=== PATIENT | female | born 1970 | race Caucasian/White ===

== ENCOUNTER → 2019-03-02 | Outpatient (CLI) | payer MEDICARE, MEDICAID ==
[~2019-03-02] MED LIST: ALPR0.5T72 PO; ANAS1TAB7 PO; CEPH500C PO; DIPH50CA44 PO; DOXY100C2 PO; GFN600TCR PO; HYDR1TAB PO; LANS30CA PO; LEVO500T69 PO; NF-ESOM40C PO; TRZ100T PO; VANCADD1 IV
[2019-03-02 16:24] LABS: ALANINE AMINOTRANSFERASE 25 U/L (0-55); ALBUMIN 4.1 GM/DL (3.2-4.5); ALKALINE PHOSPHATASE 114 U/L (40-136); BILIRUBIN,TOTAL 0.4 MG/DL (0.1-1.0); BUN/CREATININE RATIO 18; CALCIUM 9.3 MG/DL (8.5-10.1); CARBON DIOXIDE 24 MMOL/L (21-32); CHLORIDE 103 MMOL/L (98-107); CREATININE SERUM 0.78 MG/DL (0.60-1.30); GFR ESTIMATED > 60; GLUCOSE 99 MG/DL (70-105); POTASSIUM 3.6 MMOL/L (3.6-5.0); SODIUM 142 MMOL/L (135-145)
== END ==
LOC: LAB FS 02-26 12:57
PROVIDERS: ATTEND Surgery
DX: R51 Headache (principal); R53.1 Weakness
CPT/HCPCS: 36415; 80053

== ENCOUNTER 2019-08-07 21:01 | Emergency (ER) | payer MEDICARE, MEDICAID ==
[~2019-08-07] VITALS: Ht 182.8 cm; Wt 135.4 kg
[2019-08-07] MEDS ORDERED: LIDOCAINE 2% VISCOUS 15 ML UDC PO STA (21:47)
--- NOTE | 2019-08-07 21:48 | ED General ---
General Chief Complaint: Lower Extremity Stated Complaint: LEG AND MOUTH PAIN Nursing Triage Note: PT. REPORTED SHE STARTED HAVING MOUTH PAIN THAT FEELS LIKE HER MOUTH IS ON FIRE IF SHE EVEN TAKES A SIP OF WATER. SHE STATED SHE HAD AN ULCER ON THE RIGHT SIDE WHERE HER PARTIAL PLATE RUBS. SHE REPORTED THE MOUTH PAIN STARTED 4 DAYS AGO. PT. ALSO C/O LOWER EXT. PAIN STATING HER LEGS HAVE HURT FOR 2 MONTHS. PT. WANTING TO BE CHECKED TO MAKE SURE SHE DOES NOT HAVE BONE CA. PT. REPORTED SHE IS UNABLE TO GET IN TO SEE THE DOCTOR UNTIL THE MIDDLE OF AUG. AND SHE ALSO C/O BEING DIZZY BUT STATED SHE IS ALWAYS DIZZY. Nursing Sepsis Screen: No Definite Risk Source of Information: Patient History of Present Illness Date Seen by Provider: Aug 07, 2019 Time Seen by Provider: 21:16 Initial Comments 49-year-old female presenting with complaints of burning pain in her mouth when she tries to eat or drink anything for the last 4 days. She also has had 2 months or more of pain in her lower legs. She feels like it's bone pain and is worse in the shins of her legs. Especially the pain of the left leg is worse. She has seen Dr. Luz about the leg pain and was referred to the spine doctor who referred her onto a different specialist in [facility]. She is waiting to hear about that referral. She states that she called to try and get in with Dr. Luz about worsening pain in her legs and the pain in her mouth that they stated they could not get her in until 23 August. Today her symptoms got worse and she came to the ER to see if there was anything that could be done. She is worried she may have bone cancer in her legs. She has not eaten well for the last few days because of the severe pain in her mouth. She does have a history of having a gastric bypass. She also has dentures in place because she has a history of breast cancer and lost teeth when she went through chemotherapy and then had the rest of them pulled. the dentures are not fitting as well as she has lost weight. She has developed a small sore to the roof of her mouth from where the dentures were rubbing against her mouth. Allergies and Home Medications Allergies Coded Allergies: Adhesive (Verified Allergy, Unknown, 11/19/11) Latex (Verified Allergy, Unknown, 11/19/11) Penicillins (Unverified Allergy, SOB, 11/04/11) Home Medications Alprazolam 0.5 Mg Tab.rapdis, 1 EACH PO TID PRN, (Reported) Anastrozole 1 Mg Tablet, 1 MG PO DAILY, (Reported) Cephalexin Monohydrate 500 Mg Capsule, 1 EACH PO QID, (Reported) Diphenhydramine Hcl 50 Mg Capsule, 50 MG PO HS, (Reported) Esomeprazole Mag Trihydrate 40 Mg Capsule.dr, 1 CAP PO BID, (Reported) Lansoprazole 30 Mg Capsule.dr, 30 MG PO DAILY, (Reported) Lidocaine HCl 15 Ml Solution, 5 ML MM Q4H PRN for mouth pain Prescribed by: RAUL PEREIRA on 08/07/192305 Trazodone Hcl 100 Mg Tab, 100 MG PO HS, (Reported) Patient Home Medication List Home Medication List Reviewed: Yes Review of Systems Review of Systems Constitutional: No chills, No fever EENTM: see HPI Respiratory: no symptoms reported Cardiovascular: no symptoms reported Gastrointestinal: no symptoms reported Genitourinary: no symptoms reported Musculoskeletal: see HPI Skin: no symptoms reported Past Tkfuxmc-Hmgxki-Zztjxt Hx Past Med/Social Hx: Reviewed Nursing Past Med/Soc Hx Patient Social History Recent Foreign Travel: No Contact w/Someone Who Travel: No Recent Infectious Disease Expo: No Recent Hopitalizations: No (03/2012) Physical Abuse: No Sexual Abuse: No Mistreated: No Fear: No Seasonal Allergies Seasonal Allergies: No Past Medical History Surgeries: Yes (Groshong 10/29/11, mastectomy (L) 2010) Respiratory: No Cardiac: No Neurological: No Reproductive Disorders: Yes Gastrointestinal: Yes (Postop N/V) Musculoskeletal: Yes (OSTEOMYLITIS RIGHT FOOT) Endocrine: No Psychosocial: No Blood Disorders: Yes (BLEED ALOT WITH BREAST SURG) Physical Exam Vital Signs Vital Signs - First Documented 08/07/19 21:05 Temp 36.0 Pulse 86 Resp 16 B/P (MAP) 131/94 (106) Pulse Ox 98 O2 Delivery Room Air Capillary Refill : Less Than 3 Seconds Height, Weight, BMI Height: '" Weight: lbs. oz. kg; 40.00 BMI Method: General Appearance: WD/WN, Anxious Eyes: Bilateral Eye PERRL, Bilateral Eye EOMI HEENT: PERRL/EOMI, Other (edentulous and dentures in place. no erythema or sores/ulcers seen in mouth. no white plaques or exudate in mouth) Neck: Full Range of Motion, Normal Inspection, Non Tender, Supple Respiratory: Chest Non Tender, Lungs Clear, Normal Breath Sounds Cardiovascular: Regular Rate, Rhythm, Normal Peripheral Pulses Extremity: Normal Capillary Refill, Normal Inspection, Normal Range of Motion, Non Tender, No Pedal Edema Neurologic/Psychiatric: Alert, Oriented x3 Skin: Normal Color, Warm/Dry Progress/Results/Core Measures Suspected Sepsis Recent Fever Within 48 Hours: No Infection Criteria Present: None New/Unexplained Altered Menta: No Sepsis Screen: No Definite Risk SIRS Temperature: Pulse: 86 Respiratory Rate: 16 Blood Pressure 131 /94 Mean: 106 Results/Orders Lab Results Laboratory Tests Test 08/07/19 22:14 Range/Units My Orders Orders - RAUL PEREIRA MD Tibia Fibula 2 View Bilateral (08/07/19 21:45) Zinc Level (08/07/19 21:45) Vitamin B 12 (08/07/19 21:45) Folic Acid (08/07/19 21:45) Lidocaine 2% Viscous 15 Ml (Xylocaine Vi (08/07/19 21:47) Vital Signs/I&O 08/07/19 08/07/19 21:05 23:01 Temp 36.0 36.4 Pulse 86 84 Resp 16 20 B/P (MAP) 131/94 (106) 128/88 Pulse Ox 98 99 O2 Delivery Room Air Room Air Capillary Refill : Less Than 3 Seconds Blood Pressure Mean: 106 Progress Note #1: Progress Note Advised patient that with her history of gastric bypass she may be low on some vitamins might be causing her burning mouth symptoms. This may also be related to her dentures not fitting as well and causing irritation. For her leg pain I can do x-rays of the legs and see if there is any abnormality in terms bones. If these look okay she would need to continue with further workup with Dr. Self. Saab but not specifically saying she had bone cancer but if there is an obvious big bone cyst or abnormality and they could at least to help point the investigation in a better direction. Progress Note #2: Progress Note Labs sent for Zinc, B12 and folate levels. Patient was already advised that these would not be back tonight. She was encouraged to take zinc supplements in addition to her other vitamins she already is taking. On my review of the 2 view films of the left and right tib-fib x-rays I did not appreciate any acute fracture or dislocation. She had no obvious bone deformity to explain her pain. Counseled on results and follow-up and return precautions. For her mouth pain she states that she still has some mouthwash left over from when she did chemotherapy. She will try that to see if it helps with the pain. I also gave her prescription for some viscous lidocaine since it did at least numb the pain in her mouth. Departure Impression Primary Impression: Burning mouth syndrome Additional Impression: Bilateral leg pain Disposition: HOME, SELF-CARE Condition: Stable Departure-Patient Inst. Decision time for Depature: 22:59 Referrals: AASHISH LUZ MD (PCP/Family) Primary Care Physician Patient Instructions: Burning Mouth Syndrome, Muscle and Bone Pain (DC) Add. Discharge Instructions: Follow up with clinic. Try taking the Zinc supplement to see if that helps your symptoms. You may try using the mouthwash you have at home from when you did your chemotherapy to see if that helps your symptoms. You may also try the Lidocaine swish and spit medicine for numbing effect. All discharge instructions reviewed with patient and/or family. Voiced understanding. Scripts Lidocaine HCl (Lidocaine HCl Viscous) 15 Ml Solution 5 ML MM Q4H PRN for mouth pain for 3 Days, #120 ML 0 Refills Prov: RAUL PEREIRA MD 08/07/19 RAUL PEREIRA MD Aug 07, 2019 21:48
[2019-08-07 23:01] VITALS: BP 128/88
[2019-08-07] MEDS ORDERED: LIDO15SO2 MM (23:06)
--- NOTE | 2019-08-08 07:26 | Diagnostic Imaging Report ---
INDICATION: Right lower extremity pain. TIME OF EXAM: 9:28 PM Frontal and lateral views of the bilateral tibia and fibula were obtained. Alignment at the knee and ankles is normal bilaterally. Tibia and fibula appear intact bilaterally. No fractures are seen. Soft tissues are unremarkable. No definite osteolytic or blastic lesion is seen. IMPRESSION: No acute abnormality is detected. Dictated by: Dictated on workstation # [id number]
== END 2019-08-07 23:07 | disposition home or self-care (01) ==
LOC: EDUNIT# 21:01 → ER FS 21:04
DX: K14.6 Glossodynia (principal); M79.604 Pain in right leg; M79.605 Pain in left leg; Z88.8 Allergy status to other drugs, medicaments and biological substances; Z91.040 Latex allergy status; Z88.0 Allergy status to penicillin; Z85.3 Personal history of malignant neoplasm of breast
CPT/HCPCS: 36415; 82607; 82746; 84630

== ENCOUNTER → 2019-12-03 | Outpatient (CLI) | payer MEDICARE, MEDICAID ==
[~2019-12-03] MED LIST changes: +LIDO20SO23 MM
--- NOTE | 2019-12-03 12:55 | Diagnostic Imaging Report ---
EXAMINATION: CT abdomen/pelvis without contrast. TECHNIQUE: Unenhanced CT imaging of the abdomen and pelvis was performed. 2-D reformats are created and submitted for interpretation. Automatic exposure controls were utilized to optimize patient dose. INDICATION: Right flank pain. COMPARISON: CT abdomen and pelvis of 11/16/2011. FINDINGS: Evaluation of the abdominal viscera is mildly limited without contrast. Lower chest: The lung bases are clear. No pericardial or pleural effusion. Peritoneum: No free intraperitoneal air or fluid. Liver and biliary system: Unenhanced liver is normal. Cholecystectomy. No pathologic biliary duct dilatation. Spleen and Pancreas: Spleen is normal. Unenhanced pancreas is grossly normal. Adrenals: Normal. tract: There are three punctate nonobstructing 2 mm stones in the right kidney. No ureteral or urinary bladder stones. Urinary bladder is decompressed, limiting assessment. Hysterectomy. GI tract: Status post gastric sleeve. The stomach is nondilated. No bowel obstruction. No pericolonic inflammatory changes. Appendectomy. Vasculature and Lymph nodes: Normal caliber aorta. No abdominal or pelvic lymphadenopathy. Musculoskeletal: No concerning osseous lesion. IMPRESSION: 1. There are three punctate nonobstructing right renal stones. No ureteral stones or obstructive uropathy. Dictated by: Dictated on workstation # [id number]
== END ==
LOC: RAD FS 11:31
PROVIDERS: ATTEND Family Medicine
DX: N20.0 Calculus of kidney (principal)
CPT/HCPCS: 74176

== ENCOUNTER → 2019-12-24 | Outpatient (CLI) | payer MEDICARE, MEDICAID ==
--- NOTE | 2019-12-24 11:01 | Diagnostic Imaging Report ---
EXAMINATION: Supine Abdomen 1041h. INDICATION: Right-sided pain The CT abdomen/pelvis exam performed on 12/03/2019 noted 3 punctate nonobstructive calculi within the right kidney. Those findings are difficult to appreciate on this exam as the right kidney is obscured by bowel gas and fecal material. There is no evidence for nephrolithiasis on the left either. There are 2 or 3 small (3-4 mm) calcifications overlying the left transverse process of L5. In reviewing the CT exam these appear to lie along the anterior aspect of the psoas muscle. There also appear to be a few phleboliths low in the pelvis on the right. The bowel gas pattern is nonspecific. There is no evidence for bowel obstruction. Surgical clips are again seen in the region of the gastroesophageal junction and in the gallbladder fossa. There are also a few surgical clips in the pelvis on the right. IMPRESSION: The nonobstructive calculi within the right kidney seen previously are difficult to appreciate on this exam. There is no other evidence for nephrolithiasis or urolithiasis. Dictated by: Dictated on workstation # [id number]
== END ==
LOC: RAD 10:17
PROVIDERS: ATTEND Urology
DX: N20.0 Calculus of kidney (principal)
CPT/HCPCS: 74018

== ENCOUNTER 2020-02-14 12:22 | Emergency (ER) | payer MEDICARE, MEDICAID ==
[~2020-02-14] VITALS: Ht 185.5 cm; Wt 134.5 kg
--- NOTE | 2020-02-14 12:38 | ED Neurological Problem ---
General Chief Complaint: Neuro-Stroke Like Symptoms Stated Complaint: CHEST PAIN Source: patient Exam Limitations: no limitations History of Present Illness Date Seen by Provider: Feb 14, 2020 Time Seen by Provider: 12:22 Initial Comments The patient is an obese 49-year-old female brought in by EMS for evaluation of left-sided chest pain radiating to the left neck and left arm. She believes that her symptoms started at 11 AM today while she was getting out of her vehicle. At the same time she states that she lost vision in both eyes and then noticed some left sided weakness and numbness in her arm and leg. EMS gave the patient to return in 24 mg of aspirin in route for the chest pain. She states that her vision has been abnormal for the last 3 months and that she has been getting this worked up as an outpatient. Currently she states that her vision is blurry but she is able to see. 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 However, she states that normally she does not have any numbness or weakness in her arms or legs. Upon arrival she has no sensation in the left arm and is not able to move the arm against gravity. She does have some sort of cardiac history as she has seen a shorts sifter but she is unable to tell us what her history is an denies ever having had a heart attack. She is alert and oriented 4, anxious, but appears to be in no distress at this time. She reports a history of a bilateral mastectomy in the past and has a right-sided port. Timing/Duration: 1-3 hours Severity: moderate Associated Symptoms: numbness in legs/feet (left arm and left leg weakness and numbness), weakness Allergies and Home Medications Allergies Coded Allergies: Adhesive (Verified Allergy, Unknown, 11/19/11) Latex (Verified Allergy, Unknown, 11/19/11) Penicillins (Unverified Allergy, SOB, 11/04/11) Home Medications Alprazolam 0.5 Mg Tab.rapdis, 1 EACH PO TID PRN, (Reported) Anastrozole 1 Mg Tablet, 1 MG PO DAILY, (Reported) Cephalexin Monohydrate 500 Mg Capsule, 1 EACH PO QID, (Reported) Diphenhydramine Hcl 50 Mg Capsule, 50 MG PO HS, (Reported) Esomeprazole Mag Trihydrate 40 Mg Capsule.dr, 1 CAP PO BID, (Reported) Lansoprazole 30 Mg Capsule.dr, 30 MG PO DAILY, (Reported) Lidocaine HCl 15 Ml Solution, 5 ML MM Q4H PRN for mouth pain Prescribed by: RAUL PEREIRA on 08/07/192305 Trazodone Hcl 100 Mg Tab, 100 MG PO HS, (Reported) Patient Home Medication List Home Medication List Reviewed: Yes Review of Systems Review of Systems Constitutional: no symptoms reported Eyes: Blurred Vision, Vision Changes Ears, Nose, Mouth, Throat: no symptoms reported Respiratory: no symptoms reported Cardiovascular: chest pain Gastrointestinal: no symptoms reported Genitourinary: no symptoms reported Musculoskeletal: no symptoms reported Skin: no symptoms reported Psychiatric/Neurological: Numbness (and left leg and left arm), Weakness (left leg and left arm) Endocrine: No Symptoms Reported Hematologic/Lymphatic: No Symptoms Reported All Other Systems Reviewed Negative Unless Noted: Yes Past Yefsvfq-Qkvpwk-Aneezv Hx Past Med/Social Hx: Reviewed Nursing Past Med/Soc Hx Patient Social History Recent Hopitalizations: No (03/2012) Seasonal Allergies Seasonal Allergies: No Past Medical History Surgeries: Yes (Groshong 10/29/11, mastectomy (L) 2010) Respiratory: No Cardiac: No Neurological: No Reproductive Disorders: Yes Gastrointestinal: Yes (Postop N/V) Musculoskeletal: Yes (OSTEOMYLITIS RIGHT FOOT) Endocrine: No Psychosocial: No Blood Disorders: Yes (BLEED ALOT WITH BREAST SURG) Physical Exam Vital Signs Vital Signs - First Documented 02/14/20 12:41 Temp 36.8 Pulse 63 Resp 21 B/P (MAP) 144/73 (96) Pulse Ox 98 O2 Delivery Room Air Capillary Refill : Height, Weight, BMI Height: '" Weight: lbs. oz. kg; 40.00 BMI Method: General Appearance: WD/WN, no apparent distress, obese HEENT: PERRL/EOMI, normal ENT inspection, pharynx normal Neck: full range of motion, supple, normal inspection Respiratory: lungs clear, normal breath sounds, no respiratory distress, no accessory muscle use Cardiovascular: regular rate, rhythm, no edema, no JVD, no murmur Gastrointestinal: normal bowel sounds, non tender, soft, no pulsatile mass Extremities: other (left arm with edema, patient states she normally has some mild edema in the left arm but says this seems larger than normal) Neurologic/Psychiatric: alert, oriented x 3; No abnormal designated broker II-XII, No aphasia, No facial droop; motor weakness (almost no movement against gravity with the left arm, drift present in both the left arm and left leg), sensory deficit (no sensation to the left arm, decreased sensation to the left leg), other (appears anxious) Crainal Nerves: normal hearing, normal speech, PERRL Motor/Sensory: weak motor strength LUE, weak motor strength LLE Skin: normal color, warm/dry Stroke NIH Stroke Scale Assessment Select: Initial Level of Consciousness: 0=Alert (0), Level of Consciousness- Questions: 0=Answers both month/age (0), LOC Commands: 0=Performs both tasks (0), Gaze: Normal (0), Visual Lawson: 2=Complete hemianopia (2), Facial Movement (Facial Paresis): 0=Normal symmetrical mnt (0), Motor Function-Arms Right: 0=No drift (0), Motor Function-Arms Left: 3=No effort/gravity (3), Motor Function-Legs Right: 0=No drift (0), Motor Function-Legs Left: 1=Drift (1), Limb Ataxia: 0=Absent (0), Sensory: 2=Severe to total loss (2), Best Language: 0=No aphasia (0), Dysarthria: 0=Normal (0), Extinction & Inattention: 1=Visual,tactile,auditory (1), Total: 9 Progress/Results/Core Measures Results/Orders Lab Results Laboratory Tests Test 02/14/20 12:30 02/14/20 13:41 Range/Units White Blood Count 5.5 4.3-11.0 10^3/uL Red Blood Count 4.68 4.35-5.85 10^6/uL Hemoglobin 12.2 11.5-16.0 G/DL Hematocrit 39 35-52 % Mean Corpuscular Volume 83 80-99 FL Mean Corpuscular Hemoglobin 26 25-34 PG Mean Corpuscular Hemoglobin Concent 32 32-36 G/DL Red Cell Distribution Width 13.8 10.0-14.5 % Platelet Count 215 130-400 10^3/uL Mean Platelet Volume 9.7 7.4-10.4 FL Neutrophils (%) (Auto) 56 42-75 % Lymphocytes (%) (Auto) 33 12-44 % Monocytes (%) (Auto) 9 0-12 % Eosinophils (%) (Auto) 2 0-10 % Basophils (%) (Auto) 0 0-10 % Neutrophils # (Auto) 3.1 1.8-7.8 X 10^3 Lymphocytes # (Auto) 1.8 1.0-4.0 X 10^3 Monocytes # (Auto) 0.5 0.0-1.0 X 10^3 Eosinophils # (Auto) 0.1 0.0-0.3 10^3/uL Basophils # (Auto) 0.0 0.0-0.1 10^3/uL Prothrombin Time 14.8 H 12.2-14.7 SEC INR Comment 1.1 0.8-1.4 Activated Partial Thromboplast Time 26 24-35 SEC Sodium Level 142 135-145 MMOL/L Potassium Level 3.6 3.6-5.0 MMOL/L Chloride Level 110 H 98-107 MMOL/L Carbon Dioxide Level 21 21-32 MMOL/L Anion Gap 11 5-14 MMOL/L Blood Urea Nitrogen 18 7-18 MG/DL Creatinine 0.77 0.60-1.30 MG/DL Estimat Glomerular Filtration Rate > 60 BUN/Creatinine Ratio 23 Glucose Level 102 70-105 MG/DL Calcium Level 8.9 8.5-10.1 MG/DL Corrected Calcium 9.1 8.5-10.1 MG/DL Magnesium Level 1.7 1.6-2.4 MG/DL Total Bilirubin 0.3 0.1-1.0 MG/DL Aspartate Amino Transf (AST/SGOT) 21 5-34 U/L Alanine Aminotransferase (ALT/SGPT) 13 0-55 U/L Alkaline Phosphatase 109 40-136 U/L Total Creatine Kinase 111 29-168 U/L Creatine Kinase MB 1.1 <6.6 NG/ML Myoglobin 47.3 10.0-92.0 NG/ML Troponin I < 0.30 <0.30 NG/ML Pro-B-Type Natriuretic Peptide 52.6 <75.0 PG/ML Total Protein 6.9 6.4-8.2 GM/DL Albumin 3.8 3.2-4.5 GM/DL Glucometer 85 70-110 MG/DL My Orders Orders - FRANDY CAMACHO DO Cbc With Automated Diff (02/14/20 12:32) Magnesium (02/14/20 12:32) Chest 1 View Ap/Pa Only (02/14/20 12:32) Ekg Tracing (02/14/20 12:32) Comprehensive Metabolic Panel (02/14/20 12:32) Myoglobin Serum (02/14/20 12:32) Protime With Inr (02/14/20 12:32) Partial Thromboplastin Time (02/14/20 12:32) O2 (02/14/20 12:32) Monitor-Rhythm Ecg Trace Only (02/14/20 12:32) Ed Iv/Invasive Line Start (02/14/20 12:32) Creatine Kinase (02/14/20 12:32) Creatine Kinase Mb (02/14/20 12:32) Troponin I Fs (02/14/20 12:32) Probnp Fs (02/14/20 12:32) Ct Head Wo-R/O Stroke (02/14/20 12:32) Alteplase (Activase) (Activase Injection (02/14/20 13:42) Vital Signs Stroke Patient Q15M (02/14/20 13:45) Monitor-Rhythm Ecg Trace Only (02/14/20 13:45) Dysphagia Screening Tool (02/14/20 13:45) Alteplase (Activase) (Activase Injection (02/14/20 13:45) Post Thrombolytic Adminstratio (02/14/20 13:45) Ondansetron Injection (Zofran Injectio (02/14/20 14:30) Acetaminophen Tablet (Tylenol Tablet) (02/14/20 14:30) Fentanyl Injection (Sublimaze Injection (02/14/20 15:00) Fentanyl Injection (Sublimaze Injection (02/14/20 15:01) Medications Given in ED Current Medications Medications Dose Ordered Sig/Megan Route Start Time Stop Time Status Last Admin Dose Admin Alteplase, Recombinant (0.9mg/ kg-max 90mg) with ... 1345 ONCE IV 02/14/20 13:45 02/14/20 13:47 DC 02/14/20 14:19 90 MG Fentanyl Citrate 50 mcg ONCE ONCE IVP 02/14/20 15:00 02/14/20 15:02 DC 02/14/20 15:06 50 MCG Ondansetron HCl 4 mg ONCE ONCE IVP 02/14/20 14:30 02/14/20 14:31 DC 02/14/20 14:36 4 MG Vital Signs/I&O 02/14/20 12:41 Temp 36.8 Pulse 63 Resp 21 B/P (MAP) 144/73 (96) Pulse Ox 98 O2 Delivery Room Air Progress Progress Note : Progress Note @1220 - informed patient that her symptoms are concerning for stroke and she states that her preferred facility would be [facility] in [place]. @1320 - there is a problem with the chemistry machine so we cannot get the CMP to result. @1330 - Case discussed with the transfer team at [facility]. Dr. Crowder accepts the ER to ER transfer. The case was thoroughly discussed with Dr. Yeh from neurology who cannot find a contraindication to TPA. He states to discuss the wrist and benefits with the patient and if she is agreeable to give the TPA. I then discussed the 5-7% bleeding risk with the patient and the risks and benefits of giving TPA given her symptoms. She states that she has received TPA in the past for previous stroke and that she had occasions. I explained to her that she could have palpitations even though she tolerated the medicine in the past. She expresses verbal understanding and agreement with the plan. She is cu rrently having no vision in either eye and is anxious but does understand our discussion. I asked the nurse to get the helicopter on standby as we will try to fly the patient to the [facility] ER. Comment EKG@1230 - normal sinus rhythm, rate of 64, right bundle-branch block is present, left axis deviation is present, no acute ischemic findings noted, no S BI, reviewed and interpreted by myself Diagnostic Imaging Diagonstic Imaging: CT Comments [facility], [facility]. [place], [place] NAME: CHRISTOPHER ROMAN MED REC#: [id number] PT STATUS: REG ER : 1970 PHYSICIAN: FRANDY CAMACHO DO ADMIT DATE: 02/14/20/ER FS Draft Date of Exam:02/14/20 CT HEAD WO-R/O STROKE PROCEDURE: CT head wo r/o stroke. TECHNIQUE: Multiple contiguous axial images were obtained through the brain without the use of intravenous contrast. Auto Exposure Controls were utilized during the CT exam to meet ALARA standards for radiation dose reduction. INDICATION: Left-sided weakness. COMPARISON: Comparison is made with prior head CT from 11/10/2011. FINDINGS: The ventricles and sulci are within normal limits. No sulcal effacement or midline shift is detected. No acute intra-axial or extra-axial hemorrhage is detected. Cisterns are patent. Visualized paranasal sinuses are clear. IMPRESSION: No acute intracranial process is detected. Dictated on workstation # [id number] Dict: 02/14/20 1256 Trans: 02/14/20 1302 [facility] [id number] Interpreted by: KYLAH ROLDAN MD Electronically signed by: Critical Care Note Critical Care Start Time: 12:30 Stop Time: 13:30 Total Time (minutes) 60 Progress Multiple examinations of the patient, response to treatment, interpretation of lab and imaging results, discussion with multiple consultants, arranging transfer Departure Impression Primary Impression: Left-sided weakness Additional Impressions: Acute loss of vision Left arm numbness Chest pain Disposition: XF T-TRM HOSP Condition: Critical Transfer Transfer Reason: Exceeds level of care Time Spoke to Accepting Phy: 13:[address] Crowder accepts the ER-to-ER transfer at this time Transfer Time: 13:50 Transfer Facility: [facility] ER to ER Method of Transfer: Air Departure-Patient Inst. Referrals: AASHISH LUZ MD (PCP/Family) Primary Care Physician FRANDY CAMACHO DO Feb 14, 2020 12:38
[2020-02-14 12:44] LABS: HEMATOCRIT 39 % (35-52); HEMOGLOBIN 12.2 G/DL (11.5-16.0); MEAN CORPUSCULAR HEMOGLOBIN 26 PG (25-34); MEAN CORPUSCULAR HGB CONC 32 G/DL (32-36); MEAN CORPUSCULAR VOLUME 83 FL (80-99); MEAN PLATELET VOLUME 9.7 FL (7.4-10.4); PLATELET COUNT 215 10^3/uL (130-400); RED CELL DISTRIBUTION WIDTH 13.8 % (10.0-14.5); WHITE BLOOD COUNT 5.5 10^3/uL (4.3-11.0)
[2020-02-14 12:45] LABS: BASOPHILS % (AUTO) 0 % (0-10); EOSINOPHILS % (AUTO) 2 % (0-10); LYMPHOCYTES % (AUTO) 33 % (12-44); MONOCYTES % (AUTO) 9 % (0-12); NEUTROPHILS % (AUTO) 56 % (42-75)
[2020-02-14 12:47] LABS: EOSINOPHILS # (AUTO) 0.1 10^3/uL (0.0-0.3); LYMPHOCYTES # (AUTO) 1.8 X 10^3 (1.0-4.0); MONOCYTES # (AUTO) 0.5 X 10^3 (0.0-1.0); NEUTROPHILS # (AUTO) 3.1 X 10^3 (1.8-7.8)
--- NOTE | 2020-02-14 12:56 | Diagnostic Imaging Report ---
INDICATION: Left-sided weakness. TECHNIQUE/COMPARISON: A frontal chest was obtained at 12:48 PM and compared to 11/07/2011. FINDINGS: The heart and mediastinal silhouette are unremarkable. There is a Port-A-Cath in place with the tip overlying the SVC. There is no focal infiltrate, pneumothorax, or pleural fluid. There are surgical clips over the right chest wall. IMPRESSION: No acute process in the chest. Dictated by: Dictated on workstation # [id number]
--- NOTE | 2020-02-14 13:00 | NUR ---
Patient states she feels as though she is salivating constantly, managing her secretions well, but unsure of her ability to swallow fluids. Swallow test not completed at this time.
--- NOTE | 2020-02-14 13:02 | Diagnostic Imaging Report ---
PROCEDURE: CT head wo r/o stroke. TECHNIQUE: Multiple contiguous axial images were obtained through the brain without the use of intravenous contrast. Auto Exposure Controls were utilized during the CT exam to meet ALARA standards for radiation dose reduction. INDICATION: Left-sided weakness. COMPARISON: Comparison is made with prior head CT from 11/10/2011. FINDINGS: The ventricles and sulci are within normal limits. No sulcal effacement or midline shift is detected. No acute intra-axial or extra-axial hemorrhage is detected. Cisterns are patent. Visualized paranasal sinuses are clear. IMPRESSION: No acute intracranial process is detected. Dictated by: Dictated on workstation # [id number]
[2020-02-14 13:07] LABS: INR 1.1 (0.8-1.4); PROTHROMBIN TIME PATIENT 14.8 SEC (12.2-14.7)
[2020-02-14 13:42] LABS: ALANINE AMINOTRANSFERASE 13 U/L (0-55); ALKALINE PHOSPHATASE 109 U/L (40-136); BILIRUBIN,TOTAL 0.3 MG/DL (0.1-1.0); BUN/CREATININE RATIO 23; CALCIUM 8.9 MG/DL (8.5-10.1); CARBON DIOXIDE 21 MMOL/L (21-32); CREATININE SERUM 0.77 MG/DL (0.60-1.30); GFR ESTIMATED > 60; GLUCOSE 102 MG/DL (70-105); MAGNESIUM 1.7 MG/DL (1.6-2.4)
[2020-02-14] MEDS ORDERED: ALTEPLASE 100 MG/VIAL (ACTIVASE) ONE (13:42)
[2020-02-14 13:43] LABS: ALBUMIN 3.8 GM/DL (3.2-4.5); TOTAL PROTEIN 6.9 GM/DL (6.4-8.2)
[2020-02-14] MEDS ORDERED: ALTEPLASE 100 MG/VIAL (ACTIVASE) IV ONE (13:45)
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
--- NOTE | 2020-02-14 14:00 | NUR ---
Dr. Cardoso speaking with patient about possible TPA administration.
--- NOTE | 2020-02-14 14:03 | NUR ---
[facility] accepted flight and ETA 29 minutes. 21 minute flight after arrival.
--- NOTE | 2020-02-14 14:05 | NUR ---
Order received to administer TPA.
--- NOTE | 2020-02-14 14:16 | NUR ---
[facility] [address] and 15 minute ETA.
--- NOTE | 2020-02-14 14:22 | NUR ---
1419: TPA bolus administered 9 mg over 1 minute. 1420: TPA infusion started 81 mg in 81 ml to be infused over 1 hour. Patient states she has had a headache for 1 hour, has not reported headache to this RN or to physician prior to now. Patient also reports nausea. 1422: Dr. Cardoso notified, xiomara ordered for patient.
[2020-02-14] MEDS ORDERED: ONDANSETRON 4 MG/2 ML (SDV) Z0FRAN IVP ONE (14:30)
[2020-02-14] MEDS ORDERED: ACETAMINOPHEN 500 MG TAB (TYLENOL) PO ONE (14:30)
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
--- NOTE | 2020-02-14 14:45 | NUR ---
They got approval to fly patient.
[2020-02-14 14:47] VITALS: BP 156/78
[2020-02-14 14:50] LABS: CREATINE KINASE 111 U/L (29-168)
--- NOTE | 2020-02-14 14:50 | NUR ---
Patient's daughter called and updated on plan of care/transfer.
[2020-02-14 15:00] LABS: CREATINE KINASE MB 1.1 NG/ML (<6.6)
[2020-02-14] MEDS ORDERED: fentaNYL INJECTION 100 MCG/2 ML AMP IVP ONE (15:00)
[2020-02-14] MEDS ORDERED: fentaNYL INJECTION 100 MCG/2 ML AMP ONE (15:01)
[2020-02-14 15:03] LABS: CHLORIDE 110 MMOL/L (98-107); POTASSIUM 3.6 MMOL/L (3.6-5.0); SODIUM 142 MMOL/L (135-145)
== END 2020-02-14 15:07 | disposition short-term general hospital (02) ==
LOC: EDUNIT# 12:22 → ER FS 12:23
DX: M62.81 Muscle weakness (generalized) (principal); H54.7 Unspecified visual loss; Z86.73 Personal history of transient ischemic attack (TIA), and cerebral infarction without residual deficits; Z79.899 Other long term (current) drug therapy; Z88.0 Allergy status to penicillin; Z91.040 Latex allergy status; Z91.048 Other nonmedicinal substance allergy status
CPT/HCPCS: 36415; 51702; 70450; 71045; 80053; 82550; 82553; 82962; 83735; 83874; 83880; 84484; 85025; 85610; 85730; 93005; 93041

== ENCOUNTER 2020-02-18 09:44 | Inpatient (IN) | payer MEDICARE, MEDICAID ==
[~2020-02-18] VITALS: Ht 185.5 cm; Wt 132.4 kg
[2020-02-18] MEDS ORDERED: CYCL5TAB PO (11:19)
[2020-02-18] MEDS ORDERED: TEMA15CA PO (11:19)
[2020-02-18] MEDS ORDERED: TMSL.4C PO (11:19)
[2020-02-18] MEDS ORDERED: TPR25T PO (11:19)
[2020-02-18] MEDS ORDERED: MTP25TSR PO (11:19)
[2020-02-18] MEDS ORDERED: ASPI-983 PO (11:19)
[2020-02-18] MEDS ORDERED: GABA300C PO (11:19)
[2020-02-18] MEDS ORDERED: METO10TA3 PO (11:20)
--- NOTE | 2020-02-18 11:21 | NUR ---
ENTERED THE MED REC USING THE DISCHARGE ORDERS FROM [facility]: DISCHARGE ORDERS WANT THE PT TO TAKE 25MG X 7 DAYS THEN INCREASE TO 50MG THEREAFTER AFTER THE MEDICATIONS ARE CONTINUED I WILL SPEAK WITH THE PT AND UPDATE THE MED REC AND NOTES NEEDED
[2020-02-18] MEDS ORDERED: DOCUSATE SODIUM 100 MG (COLACE) CAP PO PRN (11:45)
[2020-02-18] MEDS ORDERED: LOPERAMIDE 2 MG (IMODIUM) TABLET PO PRN (11:45)
[2020-02-18] MEDS ORDERED: CALCIUM CARBONATE 500 MG (TUMS) TAB.CHEW PO PRN (11:45)
[2020-02-18] MEDS ORDERED: ONDANSETRON 4 MG (ZOFRAN) ORAL DISSOLVE TAB PO PRN (11:45)
[2020-02-18] MEDS ORDERED: guaiFENesin/CODEINE (ROBITUSSIN AC) 10ML UDC PO PRN (11:45)
[2020-02-18] MEDS ORDERED: FLEET ENEMA ADULT 1 EA BTL PR PRN (11:45)
[2020-02-18] MEDS ORDERED: diphenhydrAMINE 25 MG TAB (BENADRYL) PO PRN (11:45)
[2020-02-18] MEDS ORDERED: BISACODYL 10 MG SUPP (DULCOLAX) PR PRN (11:45)
[2020-02-18] MEDS ORDERED: ACETAMINOPHEN 500 MG TAB (TYLENOL) PO PRN (11:45)
[2020-02-18] MEDS ORDERED: LACTULOSE SYRUP 10GM/15ML (ENULOSE) 30ML UDC PO PRN (11:45)
--- NOTE | 2020-02-18 13:25 | NUR ---
DURING TRANSPORT FROM [facility], PATIENT COMPLAINED OF CHEST PAIN PROMPTING EMS TO STOP AT [facility] IN [place], [place] FOR CARDIAC WORKUP. PER NURSING REPORT, EKG SHOWED SINUS BRADYCARDIA AND TROPONIN WAS NEGATIVE. DR. LENTZ SPOKE WITH ER PROVIDER AND OKAYED TRANSFER TO [facility] ORIGINALLY PLANNED. [facility] STATES THAT CHEST PAIN LAST FOR APPROXIMATELY 30 SECONDS AND HAS SINCE RESOLVED. Addendum: 02/18/20 at 1508 by REINA ONEAL RN LASTED*
--- NOTE | 2020-02-18 14:34 | NUR ---
CHRISTOPHER ROMAN Princess admitted to room 233, with an admitting diagnosis of LEFT HEMIPARESIS AND MIGRAINE, on 02/18/20 from [facility] via EMS, accompanied by EMS STAFF. CHRISTOPHER ROMAN introduced to surroundings, call light, bed controls, phone, TV, temperature control, lights, meal times, smoking policy, visitor policy, side rail policy, bathrooms and showers. Patient Rights given to patient in the handbook. CHRISTOPHER ROMAN verbalizes understanding that [facility] is not responsible for the loss or damage to any personal effects or valuables that are kept in the patient's possession during their hospitalization. The following Patient Care Plans were discussed with the PATIENT: Discharge Planning, PAIN, IMPAIRED MOBILITY, HIGH RISK: IMPAIRED SKIN INTEGRITY, HIGH RISK: INJURY, and KNOWLEDGE DEFICIT. CHRISTOPHER ROMAN verbalizes understanding of Interdisciplinary Patient Education. Patient received Patient Rights Booklet, which includes Privacy Act Statement and Data Collection Information Summary.
[2020-02-18 14:48] VITALS: BP 147/82
[2020-02-18] MEDS ORDERED: NON-FORMULARY MEDICATION 1 EA EA (Cyclobenzaprine HCl 5 MG) PO PRN (15:15)
[2020-02-18] MEDS ORDERED: TEMAZEPAM 15 MG (RESTORIL) CAP PO PRN (15:15)
[2020-02-18] MEDS ORDERED: CYCLOBENZAPRINE 10 MG (FLEXERIL) TAB PO PRN (15:30)
--- NOTE | 2020-02-18 16:10 | Physical Therapy Evaluation ---
PT Evaluation-General Medical Diagnosis Admission Date Feb 18, 2020 at 14:51 Medical Diagnosis: left hemiparesis and migraine Onset Date: Feb 14, 2020 Therapy Diagnosis Therapy Diagnosis: impaired mobility, strength, endurance Precautions Precautions/Isolations: Fall Prevention, Standard Precautions, Pressure Ulcer Referral Physician: Ivelisse Edwards DO Reason for Referral: Evaluation/Treatment Medical History Pertinent Medical History: Breast CA S/P Mastectomy, CVA, HTN Additional Medical History DVT, THALIA, osteomyelitis, anxiety, chronic back pain, chronic joint pain, uterine cancer Reviewed History: Yes Social History Home: Single Level Current Living Status: Spouse Entry Into Home: Stairs With Railing PT Steps Into Home: 2 Prior Prior Level of Function SCALE: Activities may be completed with or without assistive devices. 4-Uonfibtgfu-yepille completes the activity by him/herself with no assistance from a helper. 5-Set-up or Clean-up Assistance-helper sets up or cleans up; patient completes activity. [place] assists only prior to or following the activity. 4-Supervision or Touching Assistance-helper provides verbal cues and/or touching/steadying and/or contact guard assistance as patient completes activity . Assistance may be provided throughout the activity or intermittently. 3-Partial/Moderate Assistance-helper does LESS THAN HALF the effort. [place] lifts, holds or supports trunk or limbs, but provides less than half the effort. 2-Substantial/Maximal Assistance-helper does MORE THAN HALF the effort. [place] lifts or holds trunk or limbs and provides more than half the effort. 3-Vxlnizgyz-yzapjj does ALL the effort. Patient does none of the effort to complete the activity. Or, the assistance of 2 or more helpers is required for the patient to complete the activity. If activity was not attempted, code reason: 7-Patient Refused. 9-Not Applicable-not attempted and the patient did not perform the activity before the current illness, exacerbation or injury. 10-Not Attempted due to Environmental Limitations-(lack of equipment, weather restraints, etc.). 88-Not Attempted due to Medical Conditions or Safety Concerns. Bed Mobility: 6 Transfers (B,C,W/C): 6 Gait: 6 Stairs: 6 PT Evaluation-Current Subjective Patient in bed pre tx, just got here by ambulance, has no complaints of pain. Will be co-treating with OT after evaluation due to poor patient mobility per hospital report, poor balance and endurance, left hemiparesis, the need to coordinate UE and LE during activity, reduce risk of falls. Pt/Family Goals to be independent at home Objective Patient Orientation: Person, Place, Situation ROM/Strength ROM Lower Extremities WNL Strength Lower Extremities RLE (hip flexion 3/5, knee flexion 4+/5, knee extension 4/5, dorsiflexion 4/5), LLE 0/5 Neuromuscular (Tone, Coordination, Reflexes) Patient has no facial deviation. No abnormal clonus in the left ankle and negative babinski reflex. Patient has varying vision, her results on peripheral vision and tracking don't seem to be reliable. Sensory Vision: Hearing: Functional Sensation Right Lower Extremit: Intact Sensation Left Lower Extremity: Impaired Sensation Lower Extremities Patient complaints of "pins and needles" sensation in her left foot, no light touch sensation. Transfers Roll Left to Right (QC): 3 Sit to Lying (QC): 3 Lying to Sitting/Side of Bed(Q: 3 Sit to Stand (QC): 3 Chair/Nzx-wj-Fwvvb Xfer(QC): 3 Toilet Transfer (QC): 3 Car Transfer (QC): 3 Patient performs bed mobility with min assist, supine <-> sit with min assist, sit to stand min assist, transfers min assist, car transfer min assist. Patient needs assist with left leg getting in to and out of bed and getting into car transfer machine. Patient doesn't lean to the left side, sitting balance is good. Gait Does the Patient Walk?: Yes Mode of Locomotion: Walk Anticipated Mode of Locomotion: Walk Walk 10 feet (QC): 88 Walk 50 ft with 2 Turns(QC): 88 Walk 150 ft (QC): 88 Walking 10ft/uneven surface-QC: 88 Distance: 6'x3 Gait Assistive Device: Parallel Bars Comments/Gait Description Patient can ambulate 6' in the parallel bars with min assist. She was able to stand and hold on with her left hand, able to bear weight on her left leg and advance it slowly. Wheelchair Training Does the Pt Use a Wheelchair?: Yes Distance: 50', 120' Wheel 50 ft with 2 turns (QC): 4 Wheel 150 ft (QC): 88 Type of Wheelchair: Manual Patient can propel a manual WC 120' with SBA. Occasional rest break due to fatigue, pulls forward with both feet and uses right arm on wheel to propel. Stairs 1 Step (curb) (QC): 88 4 Steps (QC): 88 12 Steps (QC): 88 Patient is only ambulating in the parallel bars at this time, not safe for stairs yet. Balance Sitting Static: Normal Sitting Dynamic: Normal Standing Static: Good Standing Dynamic: Good Picking up an Object (QC): 88 Treatment bathing and dressing. PT performed bed mobility and transfers, ambulation, WC mobility, assist with standing and positioning during bathing and dressing, OT worked on bathing, dressing, ADL's, assisted with bed mobility and transfers and with UE positioning and safety during activity. Assessment/Needs Patient has impaired mobility, strength, endurance. Patient could not move her left leg at the beginning of tx but was able to bear weight on it, ambulate, and use it to pull WC forward. O2 stayed at 98-99% and HR was at 55-60bpm during the whole tx. Rehab Potential: Fair PT Short Term Goals Short Term Goals Time Frame: Feb 25, 2020 Roll Left & Right: 4 Sit to lyin Lying to sitting on side of be: 4 Sit to stand: 4 Chair/vjs-dk-wibrz transfer: 4 Walk 10 feet: 4 Walk 50 feet with two turns: 4 PT Tank Setter Helper Goals Tank Setter Helper Goals PT Mcfp Goals Time Frame: Mar 10, 2020 Roll Left & Right (QC): 6 Sit to Lying (QC): 6 Lying-Sitting on Side/Bed(QC): 6 Sit to Stand (QC): 6 Chair/Kay-do-Lcwax Xfer(QC): 6 Toilet Transfer (QC): 6 Car Transfer (QC): 6 Does the Patient Walk: Yes Walk 10 feet (QC): 5 Walk 50ft with 2 Turns (QC): 5 Walk 150 ft (QC): 5 Walking 10ft on Uneven Surface: 5 1 Step (curb) (QC): 4 4 Steps (QC): 4 12 Steps (QC): 88 Picking up an Object (QC): 88 Wheel 50 feet with 2 turns (QC: 6 Wheel 150 feet: 6 PT Plan Problem List Problem List: Activity Tolerance, Functional Strength, Safety, Balance, Gait, Transfer, Bed Mobility, ROM Treatment/Plan Treatment Plan: Continue Plan of Care Treatment Plan: Bed Mobility, Education, Functional Activity Komal, Functional Strength, Group Therapy, Gait, Safety, Therapeutic Exercise, Transfers Treatment Duration: Mar 10, 2020 Frequency: At least 5 of 7 days/Wk (IRF) Estimated Hrs Per Day: 1.5 hours per day Patient and/or Family Agrees t: Yes Safety Risks/Education Patient Education: Gait Training, Transfer Techniques, Correct Positioning, W/C Management, Safety Issues Teaching Recipient: Patient Teaching Methods: Demonstration, Discussion Response to Teaching: Reinforcement Needed Discharge Recommendations Plan Patient will perform bed mobility and transfer training, balance and endurance training, functional strengthening, stair training, gait training, and education, to improve functional mobility and independence at home. Therapy Discharge Recommendati: Home & Family Time/GCodes Time In: 1425 Time Out: 1605 Total Billed Treatment Time: 90 Total Billed Treatment 1 visit EVM 10' FA 80' PT eval from [id number], OT eval from [id number], co-treat from [id number] KILEY OSORIO PT Feb 18, 2020 16:10
--- NOTE | 2020-02-18 16:12 | Occupational Therapy Eval ---
OT Evaluation-General/PLF Medical Diagnosis Admission Date Feb 18, 2020 at 14:51 Medical Diagnosis: left hemiparesis and migraine Onset Date: Feb 14, 2020 Therapy Diagnosis Therapy Diagnosis: decreased self care skills Precautions Precautions/Isolations: Fall Prevention, Standard Precautions, Pressure Ulcer Referral Physician: Grace Medical History Pertinent Medical History: Breast CA S/P Mastectomy, CVA, HTN Additional Medical History DVT, THALIA, osteomyelitis, anxiety, chronic back pain, chronic joint pain, uterine cancer, Reviewed History: Yes Social History Current Living Status: Spouse Steps Into Home: 2 ADL-Prior Level of Function SCALE: Activities may be completed with or without assistive devices. 6-Cxninjqhej-fqsuerl completes the activity by him/herself with no assistance from a helper. 5-Set-up or Clean-up Assistance-helper sets up or cleans up; patient completes activity. [place] assists only prior to or following the activity. 4-Supervision or Touching Assistance-helper provides verbal cues and/or touching/steadying and/or contact guard assistance as patient completes activity. Assistance may be provided throughout the activity or intermittently. 3-Partial/Moderate Assistance-helper does LESS THAN HALF the effort. [place] lifts, holds or supports trunk or limbs, but provides less than half the effort. 2-Substantial/Maximal Assistance-helper does MORE THAN HALF the effort. [place] lifts or holds trunk or limbs and provides more than half the effort. 8-Uobnyjxyg-aatweq does ALL the effort. Patient does none of the effort to complete the activity. Or, the assistance of 2 or more helpers is required for the patient to complete the activity. If activity was not attempted, code reason: 7-Patient Refused. 9-Not Applicable-not attempted and the patient did not perform the activity before the current illness, exacerbation or injury. 10-Not Attempted due to Environmental Limitations-(lack of equipment, weather restraints, etc.). 88-Not Attempted due to Medical Conditions or Safety Concerns. ADL PLOF Comments Pt reports being independent with self care. DME/Equipment: Bath Chair, Grab Bars, Shower, Tall Toilet OT Current Status Subjective Pt arrived to ARU from outside hospital, agrees to therapy. Mental Status/Objective Patient Orientation: Person, Place, Situation Current Glasses/Contacts: Yes Upper Extremity ROM Right UE grossly WFL Left UE:PROM grossly WFL. AROM decreased Upper Extremity Coordination Right UE WFL Left UE: impaired Upper Extremity Sensation Impaired left UE Upper Extremity Strength Right UE WFL Left UE: During formal ROM/MMT pt demonstrated trace shoulder and finger movement. Pt able to actively flex/extend elbow in gravity eliminated position. However, during ADLs and mobility pt demonstrates greater AROM. Performance was inconsistent. Pt reports blurry vision. States sometimes her vision goes black. Has varying degrees of visual impairment. Pt states this has been present for ~4months ADL-Treatment Eating (QC): 5 (Pt drinks from cup with straw after set up.) Oral Hygiene (QC): 5 (Pt brushed teeth with set up while seated at sink) Shower/Bathe Self (QC): 3 (Pt able to wash left UE, chest, abdomen, bilateral upper legs, and vaughn area. Assist for lower legs, buttocks and right UE.) Upper Body Dressing (QC): 4 (Pt doffed shirt with min assist. Donned pullover shirt with min assist.) Lower Body Dressing (QC): 2 (Assist to thread bilateral LE into underwear and shorts. Assist to complete pant hike on left side) On/Off Footwear (QC): 2 Toileting Hygiene (QC): 7 Co-treat with PT due to need for 2 skilled clinicians secondary to decreased activity tolerance, mobility, strength, ADL functioning. OT focusing on ADL completion, UE management during mobility, and safety. PT focusing on transfers, mobility, and balance during ADL tasks. Pt supine to sit with assist for left LE and to scoot to EOB. Pt transferred to w/c with FWW, cues for sequencing and safety. Pt performed w/c mobility to therapy gym with increased time. Pt performed sit to stand and gait in parallel bars x3 trials with rest breaks between trials. Pt initially required assist to place left hand on parallel bar, but was then able to food and beverage intern parallel bar and bear weight through left UE. Pt performed ADL tasks (see above). Pt has decreased activity tolerance and requires occasional rest breaks throughout session. Pt in bed with needs met after session. OT Short Term Goals Short Term Goals Time Frame: Feb 25, 2020 Toileting hygiene: 3 Shower/bathe self: 4 Upper body dressin Lower body dressin OT Greaser Helper Goals Greaser Helper Goals Time Frame: Mar 10, 2020 Eating (QC): 6 Oral Hygiene (QC): 6 Toileting Hygiene (QC): 6 Shower/Bathe Self (QC): 5 Upper Body Dressing (QC): 6 Lower Body Dressing (QC): 6 On/Off Footwear (QC): 6 Additional Goals: 1-Demonstrate ADL Tasks, 2-Verbalize Understanding, 3- ImproveStrength/Komal 1=Demonstrate adherence to instructed precautions during ADL tasks. 2=Patient will verbalize/demonstrate understanding of assistive devices/you fications for ADL. 3=Patient will improve strength/tolerance for activity to enable patient to perform ADL's. OT Education/Plan Problem List/Assessment Assessment: Decreased Activ Tolerance, Decreased UE Strength, Dependent Transfers, Impaired Coordination, Impaired Funct Balance, Impaired I ADL's, Impaired Self-Care Skills, Restricted Funct UE ROM, Visual-Perceptual Deficit Pt to benefit from skilled OT intervention for ADL training, transfers, strengthening, and safety education to increase independence and allow safe discharge. Discharge Recommendations Plan/Recommendations: Continue POC Treatment Plan/Plan of Care Treatment,Training & Education: Yes Patient would benefit from OT for education, treatment and training to promote independence in ADL's, mobility, safety and/or upper extremity function for ADL's. Plan of Care: ADL Retraining, Functional Mobility, Group Exercise/Act as Ind, UE Funct Exercise/Act, UE Neuromus Re-Ed/Coord Treatment Duration: Mar 10, 2020 Frequency: At least 5 of 7 days/Wk (IRF) Estimated Hrs Per Day: 1.5 hours per day Agreement: Yes Rehab Potential: Fair Time/GCodes Start Time: 14:35 Stop Time: 16:05 Total Time Billed (hr/min): 90 Billed Treatment Time 1 visit, EVM(10minutes), ADLx4(60minutes), FA(20minutes) OT [id number], Co-treat with PT [id number] COLT SHEPHERD OT Feb 18, 2020 16:12
[2020-02-18 16:30] VITALS: BP 147/82
--- NOTE | 2020-02-18 16:42 | Consultation-Cardiology ---
HPI-Cardiology Cardiology Consultation Date of Consultation 02/18/20 Date of Admission Time Seen by Provider: 16:37 Indication: chest pain HPI 49-year-old lady with history of syncope and CVA in the past. Sustained a recent stroke and received TPA and transferred to [facility]. Underwent extensive [address] cup[address] back in an ambulance to acute rehabilitation in [place] she developed episodes of chest pain described as pressure in her retrosternal area. Persisted until she went to the emergency room was evaluated on the way and workup was negative did not show any acute abnormality on EKG or cardiac enzymes. Reported that the chest pain improved upon arriving to the emergency room. She had few minor episodes after that. Reported similar episode prior to her stroke. Still having left sided weakness, had old stroke with residual left-sided weakness. Reporting history of syncope. History of hypotension Home Medications & Allergies Allergies: Coded Allergies: Penicillins (Unverified Allergy, Unknown, SOB, 02/18/20) adhesive (Verified Allergy, Unknown, 11/19/11) latex (Verified Allergy, Unknown, 11/19/11) Home Medication List Reviewed: Yes NTE-Euvqtk-Vjnsln Hx Patient Social History 2nd Hand Smoke Exposure: No Recent Foreign Travel: No Recent Infectious Disease Expo: No Recent Hopitalizations: No (03/2012) Immunizations Up To Date Date of Pneumonia Vaccine: Aug 11, 2016 Past Medical History Discussed below Family Medical History Family Medical Hx Noncontributory Review of Systems-General Review of Systems Constitutional: no symptoms reported, see HPI, malaise EENTM: see HPI, no symptoms reported Respiratory: no symptoms reported, see HPI; No cough, No dyspnea on exertion, No hemoptysis, No orthopnea, No phlegm; short of breath; No stridor, No wheezing, No other Cardiovascular: see HPI, chest pain; No edema, No Hx of Intervention, No palpitations, No syncope, No vascular heart diseas, No other Gastrointestinal: no symptoms reported, see HPI Genitourinary: no symptoms reported, see HPI Musculoskeletal: see HPI, back pain, joint pain Skin: no symptoms reported, see HPI Psychiatric/Neurological: See HPI, Anxiety, Depressed, Other Physical Exam Physical Exam Vital Signs Vital Signs - First Documented 02/18/20 14:48 Pulse 58 Resp 18 B/P (MAP) 147/82 (103) Pulse Ox 98 O2 Delivery Room Air Capillary Refill : Height, Weight, BMI Height: '" Weight: lbs. oz. kg; 38.47 BMI Method: General Appearance: No Apparent Distress, WD/WN Eyes: Bilateral Eye Normal Inspection, Bilateral Eye PERRL, Bilateral Eye EOMI HEENT: PERRL/EOMI, TMs Normal, Normal ENT Inspection, Pharynx Normal, Moist Mucous Membranes Neck: Full Range of Motion, Normal Inspection, Non Tender, Supple, Carotid Bruit Respiratory: Chest Non Tender, Normal Breath Sounds, No Accessory Muscle Use, No Respiratory Distress Cardiovascular: Regular Rate, Rhythm, No Edema, No Gallop, No JVD, No Murmur, Normal Peripheral Pulses Gastrointestinal: Normal Bowel Sounds, No Organomegaly, No Pulsatile Mass, Non Tender, Soft Back: Normal Inspection, No CVA Tenderness, No Vertebral Tenderness Extremity: Normal Capillary Refill, Normal Inspection, Normal Range of Motion, Non Tender, No Calf Tenderness, No Pedal Edema Neurologic/Psychiatric: Alert, Oriented x3, Other (Lt side weakness) Skin: Normal Color, Warm/Dry Lymphatic: No Adenopathy A/P-Cardiology Admission Diagnosis Acute CVA Chest pain Hypertension Syncope Assessment/Plan Acute CVA, received TPA with some improvement, still have residual left-sided weakness, 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 Transferred for acute rehabilitation Recurrent chest pain, reporting multiple episodes of chest pain resembling angina. No EKG changes. Currently chest pain-free. Initial troponin at [facility] was negative. We'll repeat troponin, monitor on telemetry, continue on aspirin, restart home medication Hypertension, episodes of hypotension and dizziness. Monitor blood pressure History of syncope, probably vasovagal. 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 Continue to monitor Obstructive sleep apnea using oxygen at night History of back surgery, left sided numbness and pain all over her body. She was scheduled for evaluation for her C-spine with orthopedic surgery History of breast cancer, bilateral mastectomy and chemotherapy. Has been in remission History of dizziness and lightheadedness Depression, receiving Effexor as an outpatient Peripheral neuropathy Gastroesophageal reflux disease Clinical Quality Measures DVT/VTE Risk/Contraindication: Risk Factor Score Per Nursin RFS Level Per Nursing on Admit: 4+=Very High YAZAN TORRES MD Feb 18, 2020 4:42 pm
--- NOTE | 2020-02-18 16:53 | PM&R Post Admission Assessment ---
PM&R HP Date of Visit: Feb 18, 2020 Time of Visit: 16:50 History of Present Illness Chief complaint: left-sided weakness acute on chronic with complicated migraine History of present illness: This is a 49-year-old white female patient of Dr. Mario who presents to the inpatient rehabilitation unit from [facility] after a five-day hospital stay due to acute onset of left-sided weakness which is acute on chronic status. She has had a stroke before but when she presented her NIH score was 9 prompting TPA being given with minimal results. She had the entire workup including echocardiogram and carotid scans and imaging scans but no significant etiology assessed and confirmed. On her way to our facility she had an episode of chest pain she was on the highway so they called 911 and the ambulance arrived promptly transported her to [facility] and [place], [place] which prompted a phone call by Dr. Malhotra who assessed her and found no evidence of acute coronary syndrome but bradycardia was assessed so cardiology consultation with Dr. Vega was initiated and appreciate his input with the addition of telemetry. 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 She's been for 30 years and has 3 children and 12 grandchildren. Her prior level of functioning utilizes a wheelchair at home with walker for transfers and able to ambulate for the most part for short distances. Past Ayvhyex-Yamjsa-Wrfczi Hx Past Med/Social Hx: Reviewed Nursing Past Med/Soc Hx, Reviewed and Corrections made Patient Social History Marrital Status: Employed/Student: unemployed Alcohol Use: Denies Use Smoking Status: Never a Smoker 2nd Hand Smoke Exposure: No Recent Foreign Travel: No Contact w/other who traveled: No Recent Hopitalizations: No (03/2012) Recent Infectious Disease Expo: No Immunizations Up To Date Date of Pneumonia Vaccine: Aug 11, 2016 Seasonal Allergies Seasonal Allergies: No Past Medical History Surgeries: Breast Respiratory: Sleep Apnea Currently Using CPAP: No Currently Using BIPAP: No Cardiac: Deep Vein Thrombosis, High Cholesterol, Hypertension Neurological: Stroke Reproductive: Yes Genitourinary: Bladder Infection Gastrointestinal: Chronic Constipation Musculoskeletal: Arthritis, Chronic Back Pain Cancer: Breast, Uterine Did You Recieve Any Treatments: Yes What Type of Treatment Did You: Chemotherapy, Radiation, Surgical Intervention Psychosocial: Anxiety History of Blood Disorders: No Prior Level of Function Bed Mobility: 6 Transfers: 6 Gait: 6 Stairs: 6 Current Level of Fuctioning Roll Left to Right: 3 Sit to Lyin Lying to Sitting/Side of Bed: 3 Sit to Stand: 3 Chair/Wyq-wc-Wnyny Xfer: 3 Car Transfer: 3 Does the Patient Walk: Yes Mode of Locomotion: Walk Anticipated Mode of Locomotion: Walk Gait Assistive Device: Parallel Bars Does the Pt Use a Wheelchair: Yes Wheelchair Distance: 50', 120' Wheel 50 ft with 2 turns: 4 Type of Wheelchair: Manual 1 Step (curb): 88 4 Steps: 88 12 Steps: 88 Picking up an Object: 88 Eatin (Pt drinks from cup with straw after set up.) Oral Hygiene: 5 (Pt brushed teeth with set up while seated at sink) Shower/Bathe Self: 3 (Pt able to wash left UE, chest, abdomen, bilateral upper legs, and vaughn area. Assist for lower legs, buttocks and right UE.) Upper Body Dressin (Pt doffed shirt with min assist. Donned pullover shirt with min assist.) Lower Body Dressin (Assist to thread bilateral LE into underwear and shorts. Assist to complete pant hike on left side) On/Off Footwear: 2 Toileting Hygiene: 7 PM&R Allergy/Meds/Data Review Allergies Coded Allergies: Penicillins (Unverified Allergy, Unknown, SOB, 02/18/20) adhesive (Verified Allergy, Unknown, 11/19/11) latex (Verified Allergy, Unknown, 11/19/11) Home Medications Scheduled Aspirin (Aspirin EC), 81 MG PO DAILY, (Reported) Gabapentin (Neurontin), 300 MG PO TID, (Reported) Metoclopramide HCl (Metoclopramide HCl), 10 MG PO QID, (Reported) Metoprolol Succinate (Metoprolol Succinate), 25 MG PO DAILY, (Reported) Tamsulosin HCl (Flomax), 0.4 MG PO DAILY, (Reported) Topiramate (Topamax), 25 MG PO HS, (Reported) Scheduled PRN Cyclobenzaprine HCl (Cyclobenzaprine HCl), 5 MG PO TID PRN for MUSCLE SPASMS, (Reported) Temazepam (Temazepam), 30 MG PO HS PRN for SLEEP, (Reported) Discontinued Medications Alprazolam (Alprazolam), 1 EACH PO TID PRN, (Reported) Discontinued Reason: No Longer Taking Anastrozole (Anastrozole), 1 MG PO DAILY, (Reported) Discontinued Reason: No Longer Taking Cephalexin Monohydrate (Cephalexin), 1 EACH PO QID, (Reported) Discontinued Reason: No Longer Taking Diphenhydramine Hcl (Sleeping), 50 MG PO HS, (Reported) Discontinued Reason: No Longer Taking Esomeprazole Mag Trihydrate (Nexium), 1 CAP PO BID, (Reported) Discontinued Reason: No Longer Taking Hydrocodone Bit/Acetaminophen (Vicodin 5-500 Tablet), 1-2 EACH PO, (Reported) Discontinued Reason: No Longer Taking Lansoprazole (Lansoprazole), 30 MG PO DAILY, (Reported) Discontinued Reason: No Longer Taking Lidocaine HCl (Lidocaine HCl Viscous), 5 ML MM Q4H PRN for mouth pain Discontinued Reason: No Longer Taking Trazodone Hcl (Desyrel 100 Mg), 100 MG PO HS, (Reported) Discontinued Reason: No Longer Taking Current Medications Current Medications Reviewed Review of Systems Constitutional: see HPI, dizziness, malaise, weakness EENTM: blurred vision, double vision, vision loss Respiratory: no symptoms reported Cardiovascular: chest pain, palpitations Gastrointestinal: no symptoms reported Genitourinary: no symptoms reported Musculoskeletal: back pain, joint pain Skin: no symptoms reported Psychiatric/Neurological: Anxiety, Depressed, Emotional Problems All Other Systems Reviewed Negative Unless Noted: Yes Physical Exam Physical Exam Vital Signs Vital Signs - First Documented 02/18/20 14:48 Pulse 58 Resp 18 B/P (MAP) 147/82 (103) Pulse Ox 98 O2 Delivery Room Air Capillary Refill : Height, Weight, BMI Height: '" Weight: lbs. oz. kg; 38.47 BMI Method: General Appearance: No Apparent Distress, WD/WN, Chronically ill, Obese Eyes: Bilateral Eye Normal Inspection, Bilateral Eye PERRL, Bilateral Eye EOMI HEENT: PERRL/EOMI, Normal ENT Inspection, Pharynx Normal, Moist Mucous Membranes Neck: Full Range of Motion, Normal Inspection, Non Tender, Supple, Carotid Bruit Respiratory: Chest Non Tender, Normal Breath Sounds, No Accessory Muscle Use, No Respiratory Distress Cardiovascular: Regular Rate, Rhythm, No Edema, No Gallop, No JVD, No Murmur, Normal Peripheral Pulses Gastrointestinal: Normal Bowel Sounds, No Organomegaly, No Pulsatile Mass, Non Tender, Soft Back: Normal Inspection, No CVA Tenderness, No Vertebral Tenderness Extremity: Normal Capillary Refill, Normal Inspection, Normal Range of Motion, Non Tender, No Calf Tenderness, No Pedal Edema Neurologic/Psychiatric: Alert, Oriented x3, Normal Mood/Affect, associate director of development II-XII Norm as Tested, Motor Weakness (left arm and left leg 1/5), Other (Lt side weakness) Skin: Normal Color, Warm/Dry Lymphatic: No Adenopathy PM&R Medical Assessment & Plan REHAB/MEDICAL ASSESSMENT AND PLAN: REHAB IMPAIRMENT GROUP: Left sided hemiparesis acute on chronic ETIOLOGIC DIAGNOSIS: Left sided hemiparesis acute on chronic The comorbidities that impact the patients function and/or functional outcome by: prior stroke, chronic left-sided weakness, severe chronic back pain, severe chronic debility, bradycardia noted on EMS telemetry consulting cardiology, obesity REHAB PLAN: The patient is being admitted to our comprehensive inpatient rehabilitation facility and can tolerate the intensity of service consisting of at least: 180 minutes of therapy a day, 5 out of 7 days a week Rehab treatment will consist of: PT and OT will focus on left-sided weakness in order to regain some function of prior chronic disability of the left side. increasing ADL independence will help success when she returns at home The patient/family has a good understanding of our discharge process and will benefit from an interdisciplinary inpatient rehabilitation program. The patient has potential to make improvement and is in need of at least two of the following multidisciplinary therapies including but not limited to physical, occupational, speech, and prosthetics and orthotics. Additionally the patient will need services from respiratory, nutritional services, wound care, psychology, etc. (Customize this to each patient). Given the patients complex condition and risk of further medical complications, rehabilitation services cannot be safely or effectively provided at a lower level of care such as a senior care facility. BARRIERS TO DISCHARGE: Severe left sided weakness ESTIMATED LOS: 7 days DISPOSITION: Home with home care RELEVANT CHANGES SINCE PREADMISSION SCREENING: I have compared the patients medical and functional status at the time of the preadmission screening and there are: no changes PROGNOSIS: Good REHABILITATION GOALS: 1. PT and OT will focus on left-sided weakness in order to regain some function of prior chronic disability of the left side. increasing ADL independence will help success when she returns at home All the above goals were reviewed with the patient and he/she is in agreement. By signing this document, I acknowledge that I have personally performed a full physical examination on this patient within 24 hours of admission to this inpatient rehabilitation facility and have determined the patient to be able to tolerate the above course of treatment at an intensive level for a reasonable period of time. I will be completing a detailed individualized Plan of Care for this patient by day #4 of the patients stay based upon the Preadmission Screen, the Post-Admission Evaluation, and the therapy evaluations. Admission Dx/Comorbidities: (1) Left-sided weakness Status: Acute ICD Codes: R53.1 - Weakness (2) Complicated migraine ICD Codes: G43.109 - Migraine with aura, not intractable, without status migrainosus (3) H/O bilateral mastectomy ICD Codes: Z90.13 - Acquired absence of bilateral breasts and nipples (4) HX: breast cancer ICD Codes: Z85.3 - Personal history of malignant neoplasm of breast (5) Hypertension ICD Codes: I10 - Essential (primary) hypertension (6) History of CVA (cerebrovascular accident) ICD Codes: Z86.73 - Personal history of transient ischemic attack (TIA), and cerebral infarction without residual deficits (7) Chest pain in adult ICD Codes: R07.9 - Chest pain, unspecified (8) Bradycardia ICD Codes: R00.1 - Bradycardia, unspecified (9) Obesity ICD Codes: E66.9 - Obesity, unspecified (10) Chronic pain ICD Codes: G89.29 - Other chronic pain (11) History of DVT (deep vein thrombosis) ICD Codes: Z86.718 - Personal history of other venous thrombosis and embolism (12) THALIA (obstructive sleep apnea) ICD Codes: G47.33 - Obstructive sleep apnea (adult) (pediatric) (13) History of uterine cancer ICD Codes: Z85.42 - Personal history of malignant neoplasm of other parts of uterus (14) Received tissue plasminogen activator (tPA) less than 24 hours prior to arrival ICD Codes: Z92.82 - Status post administration of tPA (rtPA) in a different facility within the last 24 hours prior to admission to current facility (15) Vision loss, bilateral ICD Codes: H54.3 - Unqualified visual loss, both eyes (16) Nocturnal hypoxemia ICD Codes: G47.34 - Idiopathic sleep related nonobstructive alveolar hypove ntilation (17) Back pain ICD Codes: M54.9 - Dorsalgia, unspecified Copy Copies To 1: SELFAASHISH MD Assessment/Plan Assessment and Plan Assess & Plan/Chief Complaint Assessment: Left-sided weakness acute on chronic Complicated migraine Vision loss History of breast cancer status post bilateral mastectomies History of uterine cancer status post hysterectomy with treatment Obesity THALIA noncompliant with C Pap Hypertension Bradycardia? Hyperlipidemia History of DVTs Plan: Home meds [facility] medication recommendations Lovenox for DVT prophylaxis Telemetry per cardiology recommendations Pain meds she takes chronically at home Fall risk KASHMIR LENTZ DO Feb 18, 2020 16:53
[2020-02-18] MEDS: ENOXAPARIN 40 MG/0.4 ML (LOVENOX) SYR SC SCH (17:31)
[2020-02-18] MEDS: METOCLOPRAMIDE 10 MG (REGLAN) TAB PO SCH ×2 (17:31→20:48)
[2020-02-18 17:34] VITALS: BP 116/74
[2020-02-18] MEDS: toPIRamate 25 MG (TOPAMAX) TAB PO SCH (20:48)
[2020-02-18] MEDS: SENNA W/DOCUSATE (SENOKOT S) TABLET PO SCH (20:48)
[2020-02-18] MEDS: GABAPENTIN 300 MG (NEURONTIN) CAP PO SCH (20:48)
[2020-02-18] MEDS: polyethylene glycoL POWDER 17 GM (MIRALAX) PACK PO SCH (20:48)
[2020-02-18] MEDS: DOCUSATE SODIUM 100 MG (COLACE) CAP PO SCH (20:48)
[2020-02-18] MEDS ORDERED: toPIRamate 25 MG (TOPAMAX) TAB PO SCH (21:00)
[2020-02-19] MEDS: ALPRAZolam 0.25 MG (XANAX) TAB PO PRN ×2 (00:06→21:50)
[2020-02-19] MEDS: MELATONIN 3 MG TABLET PO PRN ×2 (00:07→21:50)
[2020-02-19 06:05] VITALS: BP 126/76
[2020-02-19] MEDS: ACETAMINOPHEN 325 MG TABLET PO PRN ×2 (06:18→11:28)
[2020-02-19 06:20] LABS: BASOPHILS % (AUTO) 0 % (0-10); EOSINOPHILS # (AUTO) 0.1 10^3/uL (0.0-0.3); EOSINOPHILS % (AUTO) 2 % (0-10); HEMATOCRIT 41 % (35-52); HEMOGLOBIN 13.1 G/DL (11.5-16.0); LYMPHOCYTES # (AUTO) 1.8 X 10^3 (1.0-4.0); LYMPHOCYTES % (AUTO) 33 % (12-44); MEAN CORPUSCULAR HEMOGLOBIN 26 PG (25-34); MEAN CORPUSCULAR HGB CONC 32 G/DL (32-36); MEAN CORPUSCULAR VOLUME 82 FL (80-99); MEAN PLATELET VOLUME 9.5 FL (7.4-10.4); MONOCYTES # (AUTO) 0.5 X 10^3 (0.0-1.0); MONOCYTES % (AUTO) 10 % (0-12); NEUTROPHILS # (AUTO) 2.9 X 10^3 (1.8-7.8); NEUTROPHILS % (AUTO) 55 % (42-75); PLATELET COUNT 225 10^3/uL (130-400); RED CELL DISTRIBUTION WIDTH 14.5 % (10.0-14.5); WHITE BLOOD COUNT 5.3 10^3/uL (4.3-11.0)
[2020-02-19 06:31] LABS: ALBUMIN 3.7 GM/DL (3.2-4.5); CHLORIDE 105 MMOL/L (98-107); POTASSIUM 3.7 MMOL/L (3.6-5.0); SODIUM 142 MMOL/L (135-145)
[2020-02-19 06:33] LABS: CALCIUM 9.1 MG/DL (8.5-10.1)
[2020-02-19 06:34] LABS: GLUCOSE 97 MG/DL (70-105); TOTAL PROTEIN 7.1 GM/DL (6.4-8.2)
[2020-02-19 06:35] LABS: BILIRUBIN,TOTAL 0.3 MG/DL (0.1-1.0); CARBON DIOXIDE 26 MMOL/L (21-32)
[2020-02-19 06:37] LABS: ALKALINE PHOSPHATASE 96 U/L (40-136); CREATININE SERUM 0.84 MG/DL (0.60-1.30); GFR ESTIMATED > 60
[2020-02-19 06:38] LABS: BUN/CREATININE RATIO 25
[2020-02-19 06:40] LABS: ALANINE AMINOTRANSFERASE 19 U/L (0-55)
[2020-02-19] MEDS: METOCLOPRAMIDE 10 MG (REGLAN) TAB PO SCH ×4 (10:13→21:45)
[2020-02-19] MEDS: SENNA W/DOCUSATE (SENOKOT S) TABLET PO SCH ×2 (10:13→22:50)
[2020-02-19] MEDS: ASPIRIN E.C. 81 MG (ECOTRIN) TAB PO SCH (10:13)
[2020-02-19] MEDS: TAMSULOSIN 0.4 MG (FLOMAX) CAP PO SCH (10:14)
[2020-02-19] MEDS: polyethylene glycoL POWDER 17 GM (MIRALAX) PACK PO SCH ×2 (10:14→22:50)
[2020-02-19] MEDS: DOCUSATE SODIUM 100 MG (COLACE) CAP PO SCH ×2 (10:14→22:49)
[2020-02-19] MEDS: GABAPENTIN 300 MG (NEURONTIN) CAP PO SCH ×3 (10:14→21:45)
--- NOTE | 2020-02-19 11:20 | NUR ---
C/O NAUSEA ET PAIN. 1 TAB ZOFRAN PO GIVEN SUBLINGUAL. SOME RELIEF NOTED @ 1210, PT ABLE TO CONSUME 1/2 LUNCH, RESTS. PAIN IN KNEE, 2 TABS TYLENOL GIVEN PO. WILL CON'T TO MONITOR.
--- NOTE | 2020-02-19 11:51 | PM&R Progress Note ---
Subjective HPI/CC On Admission Date Seen by Provider: Feb 19, 2020 Time Seen by Provider: 12:00 Subjective/Events-last exam Patient feels better today Focused on getting home IMANI today but after therapy she tired easily and at 1030 she did not feel well and had overdone it Still asking if she can go home this week but she just arrived yesterday afternoon so I told her to take one day at a time and on Fri we would evaluate her case BM this am a large one Telemetry NSR no bradycardia Checked meds and labs Conferred with RN Reviewed therapy notes Review of Systems Neurological: Weakness, Numbness, Incoordination Objective Exam Vital Signs Vital Signs Date Time Temp Pulse Resp B/P (MAP) Pulse Ox O2 Delivery O2 Flow Rate FiO2 02/19/20 17:59 36.9 94 18 132/68 (89) 96 02/19/20 09:00 Room Air Capillary Refill : Less Than 3 Seconds General Appearance: No Apparent Distress, WD/WN, Chronically ill, Obese HEENT: PERRL/EOMI, Normal ENT Inspection, Pharynx Normal, Moist Mucous Membranes Neck: Full Range of Motion, Normal Inspection, Non Tender, Supple, Carotid Bruit Respiratory: Chest Non Tender, Normal Breath Sounds, No Accessory Muscle Use, No Respiratory Distress Cardiovascular: Regular Rate, Rhythm, No Edema, No Gallop, No JVD, No Murmur, Normal Peripheral Pulses Gastrointestinal: Normal Bowel Sounds, No Organomegaly, No Pulsatile Mass, Non Tender, Soft Back: Normal Inspection, No CVA Tenderness, No Vertebral Tenderness Extremity: Normal Capillary Refill, Normal Inspection, Normal Range of Motion, Non Tender, No Calf Tenderness, No Pedal Edema Neurologic/Psychiatric: Alert, Oriented x3, Normal Mood/Affect, table setter II-XII Norm as Tested, Motor Weakness (left arm and left leg 1/5), Other (Lt side weakness) Skin: Normal Color, Warm/Dry Lymphatic: No Adenopathy Results/Procedures Lab Laboratory Tests 02/19/20 06:05 Patient resulted labs reviewed. FIM Transfers Therapy Code Descriptions/Definitions Functional [place] Measure: 0=Not Assessed/NA 4=Minimal Assistance 1=Total Assistance 5=Supervision or Setup 2=Maximal Assistance 6=Modified [place] 3=Moderate Assistance 7=Complete IndependenceSCALE: Activities may be completed with or without assistive devices. 6-Axougpsjsz-siiemlh completes the activity by him/herself with no assistance from a helper. 5-Set-up or Clean-up Assistance-helper sets up or cleans up; patient completes activity. [place] assists only prior to or following the activity. 4-Supervision or Touching Assistance-helper provides verbal cues and/or touching/steadying and/or contact guard assistance as patient completes activity. Assistance may be provided throughout the activity or intermittently. 3-Partial/Moderate Assistance-helper does LESS THAN HALF the effort. [place] lifts, holds or supports trunk or limbs, but provides less than half the effort. 2-Substantial/Maximal Assistance-helper does MORE THAN HALF the effort. [place] l ifts or holds trunk or limbs and provides more than half the effort. 6-Pkmurhquu-bwtbeo does ALL the effort. Patient does none of the effort to complete the activity. Or, the assistance of 2 or more helpers is required for the patient to complete the activity. If activity was not attempted, code reason: 7-Patient Refused. 9-Not Applicable-not attempted and the patient did not perform the activity before the current illness, exacerbation or injury. 10-Not Attempted due to Environmental Limitations-(lack of equipment, weather restraints, etc.). 88-Not Attempted due to Medical Conditions or Safety Concerns. Roll Left to Right (QC): 3 Sit to Lying (QC): 3 Sit to Stand (QC): 3 Chair/Xtb-xf-Hqixy Xfer(QC): 3 Car Transfer (QC): 3 Gait Training Does the Patient Walk?: Yes Gait Assistive Device: Parallel Bars Wheelchair Training Does the Pt Use a Wheelchair?: Yes Distance: 50', 120' Wheel 50 ft with 2 turns (QC): 4 Type of Wheelchair: Manual Stair Training 1 Step (curb) (QC): 88 4 Steps (QC): 88 12 Steps (QC): 88 Balance Picking up an Object (QC): 88 ADL-Treatment Eating (QC): 5 (Pt drinks from cup with straw after set up.) Oral Hygiene (QC): 5 (Pt brushed teeth with set up while seated at sink) Shower/Bathe Self (QC): 3 (Pt able to wash left UE, chest, abdomen, bilateral upper legs, and vaughn area. Assist for lower legs, buttocks and right UE.) Upper Body Dressing (QC): 4 (Pt doffed shirt with min assist. Donned pullover shirt with min assist.) Lower Body Dressing (QC): 2 (Assist to thread bilateral LE into underwear and shorts. Assist to complete pant hike on left side) On/Off Footwear (QC): 2 Toileting Hygiene (QC): 7 Assessment/Plan Assessment and Plan Assess & Plan/Chief Complaint Assessment: Left-sided weakness acute on chronic Complicated migraine Vision loss History of breast cancer status post bilateral mastectomies History of uterine cancer status post hysterectomy with treatment Obesity THALIA noncompliant with C Pap Hypertension Bradycardia? Hyperlipidemia History of DVTs Plan: Home meds [facility] medication recommendations Lovenox for DVT prophylaxis Telemetry per cardiology recommendations Pain meds she takes chronically at home Fall risk (1) Left-sided weakness Status: Acute (2) Complicated migraine (3) H/O bilateral mastectomy (4) HX: breast cancer (5) Hypertension (6) History of CVA (cerebrovascular accident) (7) Chest pain in adult (8) Bradycardia (9) Obesity (10) Chronic pain (11) History of DVT (deep vein thrombosis) (12) THALIA (obstructive sleep apnea) (13) History of uterine cancer (14) Received tissue plasminogen activator (tPA) less than 24 hours prior to arrival (15) Vision loss, bilateral (16) Nocturnal hypoxemia (17) Back pain KASHMIR LENTZ DO Feb 19, 2020 11:50
--- NOTE | 2020-02-19 11:53 | Physical Therapy Daily Note ---
PT Daily Note-Current Subjective Pt sitting in recliner upon arrival. Pt agrees to PT. Pain Numeric Pain Scale: 9 Location: Lower Location Body Site: Back Pain Description: Ache Mental Status Patient Orientation: Person, Place, Situation Transfers SCALE: Activities may be completed with or without assistive devices. 2-Lyqogoekkc-fsuqhzi completes the activity by him/herself with no assistance from a helper. 5-Set-up or Clean-up Assistance-helper sets up or cleans up; patient completes activity. [place] assists only prior to or following the activity. 4-Supervision or Touching Assistance-helper provides verbal cues and/or touching/steadying and/or contact guard assistance as patient completes activity. Assistance may be provided throughout the activity or intermittently. 3-Partial/Moderate Assistance-helper does LESS THAN HALF the effort. [place] lifts, holds or supports trunk or limbs, but provides less than half the effort. 2-Substantial/Maximal Assistance-helper does MORE THAN HALF the effort. [place] lifts or holds trunk or limbs and provides more than half the effort. 1-Itnkjfpdd-upaamq does ALL the effort. Patient does none of the effort to complete the activity. Or, the assistance of 2 or more helpers is required for the patient to complete the activity. If activity was not attempted, code reason: 7-Patient Refused. 9-Not Applicable-not attempted and the patient did not perform the activity bef ore the current illness, exacerbation or injury. 10-Not Attempted due to Environmental Limitations-(lack of equipment, weather r estraints, etc.). 88-Not Attempted due to Medical Conditions or Safety Concerns. Sit to Stand (QC): 4 Gait Training Does the Patient Walk?: Yes Distance: 20', 15', 7' Walk 10 feet (QC): 4 Gait Assistive Device: FWW Pt attempted ambulation at [facility] but was too unstable so switched to FWW. Treatments Pt walks in hallway, resting in [facility] when fatigue and pain set in. Pt returns to room to rest in bed at end of Rx. Pt has all needs met, call light in hand. Assessment Current Status: Fair Progress Pain limits walking at this time. PT Short Term Goals Short Term Goals Time Frame: Feb 25, 2020 Roll Left & Right: 4 Sit to lyin Lying to sitting on side of be: 4 Sit to stand: 4 Chair/ktx-vw-wzwpq transfer: 4 Walk 10 feet: 4 Walk 50 feet with two turns: 4 PT Community Worker Goals Community Worker Goals PT Snf Goals Time Frame: Mar 10, 2020 Roll Left & Right (QC): 6 Sit to Lying (QC): 6 Lying-Sitting on Side/Bed(QC): 6 Sit to Stand (QC): 6 Chair/Yqd-yy-Sxbos Xfer(QC): 6 Toilet Transfer (QC): 6 Car Transfer (QC): 6 Does the Patient Walk: Yes Walk 10 feet (QC): 5 Walk 50ft with 2 Turns (QC): 5 Walk 150 ft (QC): 5 Walking 10ft on Uneven Surface: 5 1 Step (curb) (QC): 4 4 Steps (QC): 4 12 Steps (QC): 88 Picking up an Object (QC): 88 Wheel 50 feet with 2 turns (QC: 6 Wheel 150 feet: 6 PT Plan Problem List Problem List: Activity Tolerance, Functional Strength, Safety, Balance, Gait, Transfer Treatment/Plan Treatment Plan: Continue Plan of Care Treatment Plan: Bed Mobility, Education, Functional Activity [place], Functional Strength, Group Therapy, Gait, Safety, Therapeutic Exercise, Transfers Treatment Duration: Mar 10, 2020 Frequency: At least 5 of 7 days/Wk (IRF) Estimated Hrs Per Day: 1.5 hours per day Patient and/or Family Agrees t: Yes Safety Risks/Education Patient Education: Gait Training, Transfer Techniques, Correct Positioning, Safety Issues Teaching Recipient: Patient Teaching Methods: Discussion Response to Teaching: Verbalize Understanding Time/GCodes Time In: 1050 Time Out: 1110 Total Billed Treatment Time: 20 Total Billed Treatment 1, GT (20m) LISA MCLAUGHLIN DRILLER'S OFFSIDER Feb 19, 2020 11:53
[2020-02-19] MEDS ORDERED: HYDROcodone/APAP 5 MG/325 MG (LORTAB) TAB PO PRN (12:45)
--- NOTE | 2020-02-19 13:30 | NUR ---
PAIN CONTINUES TO INCREASE, MOTIONS TO FRONT OF HEAD. RATES PAIN @ A '9' ON 1/10 SCALE. B/P 130/63, HR 66. 1 TAB HYDROCODONE GIVEN PO. PT SLEEPS UNTIL 4 PM. 'FEELS BETTER' WHEN WAKES FROM [facility]. WILL CON'T TO MONITOR.
--- NOTE | 2020-02-19 14:34 | Cardiology Progress Note ---
Cardiology SOAP Progress Note Subjective: No cardiac complaints. Objective: I&O/Vital Signs 02/19/20 02/19/20 02/19/20 02/19/20 06:05 07:00 09:00 12:42 Temp 36.6 Pulse 69 79 69 Resp 18 B/P (MAP) 126/76 (93) Pulse Ox 96 96 O2 Delivery Room Air 02/19/20 00:00 Intake Total 500 ml Balance 500 ml Constitutional: AAO x 3, PERRL, well-developed, well-nourished Respiratory: chest is bilaterally symmetric, lungs clear to auscultation Cardiovascular: regular rate-rhythm, S1 and S2 Gastrointestional: soft, audible bowel sounds Extremities: normal range of motion, non-tender, normal inspection Neurologic/Psychiatric: alert, normal mood/affect, oriented x 3 Skin: normal color Results/Procedures: Labs Laboratory Tests 02/19/20 06:05: White Blood Count 5.3, Red Blood Count 5.00, Hemoglobin 13.1, Hematocrit 41, Mean Corpuscular Volume 82, Mean Corpuscular Hemoglobin 26, Mean Corpuscular Hemoglobin Concent 32, Red Cell Distribution Width 14.5, Platelet Count 225, Mean Platelet Volume 9.5, Neutrophils (%) (Auto) 55, Lymphocytes (%) (Auto) 33, Monocytes (%) (Auto) 10, Eosinophils (%) (Auto) 2, Basophils (%) (Auto) 0, Neutrophils # (Auto) 2.9, Lymphocytes # (Auto) 1.8, Monocytes # (Auto) 0.5, Eosinophils # (Auto) 0.1, Basophils # (Auto) 0.0, Sodium Level 142, Potassium Level 3.7, Chloride Level 105, Carbon Dioxide Level 26, Anion Gap 11, Blood Urea Nitrogen 21H, Creatinine 0.84, Estimat Glomerular Filtration Rate > 60, BUN/Creatinine Ratio 25, Glucose Level 97, Calcium Level 9.1, Corrected Calcium 9.3, Total Bilirubin 0.3, Aspartate Amino Transf (AST/SGOT) 25, Alanine Aminotransferase (ALT/SGPT) 19, Alkaline Phosphatase 96, Troponin I < 0.028, Total Protein 7.1, Albumin 3.7 A/P: Assessment/Dx: Acute CVA Chest pain Hypertension Syncope Plan: Acute CVA, received TPA with some improvement, still have residual left-sided weakness, 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 Transferred for acute rehabilitation Recurrent chest pain, reporting multiple episodes of chest pain resembling angina. No EKG changes. Currently chest pain-free. Initial troponin at [facility] was negative. We'll repeat troponin, monitor on telemetry, continue on aspirin, restart home medication Hypertension, episodes of hypotension and dizziness. Monitor blood pressure History of syncope, probably vasovagal. Continue to monitor her response to rehabilitation History of abnormal EKG with right bundle branch block and left anterior fasc icular block. Continue to monitor Obstructive sleep apnea using oxygen at night History of back surgery, left sided numbness and pain all over her body. She was scheduled for evaluation for her C-spine with orthopedic surgery History of breast cancer, bilateral mastectomy and chemotherapy. Has been in remission History of dizziness and lightheadedness Depression, receiving Effexor as an outpatient Peripheral neuropathy Thank you for your consultation. Please call me if you have any questions. Florina Ewing MD, FACP, FACC, FSCAI, FHRS, CCDS Interventional Cardiology Cardiac Electrophysiology Vascular Medicine and Endovascular Interventions Tawanda EWING MD Feb 19, 2020 14:34
[2020-02-19] MEDS: ENOXAPARIN 40 MG/0.4 ML (LOVENOX) SYR SC SCH (17:10)
[2020-02-19 17:59] VITALS: BP 132/68
[2020-02-19] MEDS: toPIRamate 25 MG (TOPAMAX) TAB PO SCH (21:45)
[2020-02-20 06:30] VITALS: BP 106/57
[2020-02-20] MEDS: polyethylene glycoL POWDER 17 GM (MIRALAX) PACK PO SCH (09:37)
[2020-02-20] MEDS: METOCLOPRAMIDE 10 MG (REGLAN) TAB PO SCH ×2 (09:37→13:28)
[2020-02-20] MEDS: DOCUSATE SODIUM 100 MG (COLACE) CAP PO SCH (09:37)
[2020-02-20] MEDS: SENNA W/DOCUSATE (SENOKOT S) TABLET PO SCH (09:37)
[2020-02-20] MEDS: TAMSULOSIN 0.4 MG (FLOMAX) CAP PO SCH (09:37)
[2020-02-20] MEDS: GABAPENTIN 300 MG (NEURONTIN) CAP PO SCH ×2 (09:37→13:28)
[2020-02-20] MEDS: ASPIRIN E.C. 81 MG (ECOTRIN) TAB PO SCH (09:37)
--- NOTE | 2020-02-20 11:02 | PM&R Progress Note ---
Subjective HPI/CC On Admission Date Seen by Provider: Feb 20, 2020 Subjective/Events-last exam Patient feels better today Focused on getting home IMANI today but after therapy she tired easily and at 1030 she did not feel well and had overdone it Still asking if she can go home this week but she just arrived yesterday afternoon so I told her to take one day at a time and on Fri we would evaluate her case BM this am a large one Telemetry NSR no bradycardia Checked meds and labs Conferred with RN Reviewed therapy notes Objective Exam Vital Signs Vital Signs Date Time Temp Pulse Resp B/P (MAP) Pulse Ox O2 Delivery O2 Flow Rate FiO2 02/20/20 12:40 62 02/20/20 09:00 96 Room Air 02/20/20 06:30 36.9 18 106/57 (73) Capillary Refill : Less Than 3 Seconds General Appearance: No Apparent Distress, WD/WN, Chronically ill, Obese HEENT: PERRL/EOMI, Normal ENT Inspection, Pharynx Normal, Moist Mucous Membranes Neck: Full Range of Motion, Normal Inspection, Non Tender, Supple, Carotid Bruit Respiratory: Chest Non Tender, Normal Breath Sounds, No Accessory Muscle Use, No Respiratory Distress Cardiovascular: Regular Rate, Rhythm, No Edema, No Gallop, No JVD, No Murmur, Normal Peripheral Pulses Gastrointestinal: Normal Bowel Sounds, No Organomegaly, No Pulsatile Mass, Non Tender, Soft Back: Normal Inspection, No CVA Tenderness, No Vertebral Tenderness Extremity: Normal Capillary Refill, Normal Inspection, Normal Range of Motion, Non Tender, No Calf Tenderness, No Pedal Edema Neurologic/Psychiatric: Alert, Oriented x3, Normal Mood/Affect, 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 FIM Transfers Therapy Code Descriptions/Definitions Functional Rupert Measure: 0=Not Assessed/NA 4=Minimal Assistance 1=Total Assistance 5=Supervision or Setup 2=Maximal Assistance 6=Modified Rupert 3=Moderate Assistance 7=Complete IndependenceSCALE: Activities may be completed with or without assistive devices. 4-Gmcuaoqrxi-scmntcd completes the activity by him/herself with no assistance from a helper. 5-Set-up or Clean-up Assistance-helper sets up or cleans up; patient completes activity. Mcclure assists only prior to or following the activity. 4-Supervision or Touching Assistance-helper provides verbal cues and/or t ouching/steadying and/or contact guard assistance as patient completes activity. Assistance may be provided throughout the activity or intermittently. 3-Partial/Moderate Assistance-helper does LESS THAN HALF the effort. Mcclure lifts, holds or supports trunk or limbs, but provides less than half the effort. 2-Substantial/Maximal Assistance-helper does MORE THAN HALF the effort. Mcclure lifts or holds trunk or limbs and provides more than half the effort. 2-Ddxhflngm-ufrikz does ALL the effort. Patient does none of the effort to complete the activity. Or, the assistance of 2 or more helpers is required for the patient to complete the activity. If activity was not attempted, code reason: 7-Patient Refused. 9-Not Applicable-not attempted and the patient did not perform the activity before the current illness, exacerbation or injury. 10-Not Attempted due to Environmental Limitations-(lack of equipment, weather restraints, etc.). 88-Not Attempted due to Medical Conditions or Safety Concerns. Roll Left to Right (QC): 3 Sit to Lying (QC): 3 Sit to Stand (QC): 4 Chair/Sqa-er-Nzaax Xfer(QC): 3 Car Transfer (QC): 3 Gait Training Does the Patient Walk?: Yes Distance: 20', 15', 7' Walk 10 feet (QC): 4 Gait Assistive Device: FWW Wheelchair Training Does the Pt Use a Wheelchair?: Yes Distance: 50', 120' Wheel 50 ft with 2 turns (QC): 4 Type of Wheelchair: Manual Stair Training 1 Step (curb) (QC): 88 4 Steps (QC): 88 12 Steps (QC): 88 Balance Picking up an Object (QC): 88 ADL-Treatment Eating (QC): 5 (Pt drinks from cup with straw after set up.) Oral Hygiene (QC): 5 (Pt brushed teeth with set up while seated at sink) Shower/Bathe Self (QC): 3 (Pt able to wash left UE, chest, abdomen, bilateral upper legs, and vaughn area. Assist for lower legs, buttocks and right UE.) Upper Body Dressing (QC): 4 (Pt doffed shirt with min assist. Donned pullover shirt with min assist.) Lower Body Dressing (QC): 2 (Assist to thread bilateral LE into underwear and shorts. Assist to complete pant hike on left side) On/Off Footwear (QC): 2 Toileting Hygiene (QC): 7 Assessment/Plan Assessment and Plan Assess & Plan/Chief Complaint Assessment: Left-sided weakness acute on chronic Complicated migraine Vision loss History of breast cancer status post bilateral mastectomies History of uterine cancer status post hysterectomy with treatment Obesity THALIA noncompliant with C Pap Hypertension Bradycardia? Hyperlipidemia History of DVTs Plan: Home meds [facility] medication recommendations Lovenox for DVT prophylaxis Telemetry per cardiology recommendations Pain meds she takes chronically at home Fall risk (1) Left-sided weakness Status: Acute (2) Complicated migraine (3) H/O bilateral mastectomy (4) HX: breast cancer (5) Hypertension (6) History of CVA (cerebrovascular accident) (7) Chest pain in adult (8) Bradycardia (9) Obesity (10) Chronic pain (11) History of DVT (deep vein thrombosis) (12) THALIA (obstructive sleep apnea) (13) History of uterine cancer (14) Received tissue plasminogen activator (tPA) less than 24 hours prior to arrival (15) Vision loss, bilateral (16) Nocturnal hypoxemia (17) Back pain KASHMIR LENTZ DO Feb 20, 2020 11:01
--- NOTE | 2020-02-20 11:02 | Individualized Plan of Care ---
Individualized Plan of Care Rehab Nursing IPOC Order Admission Date Feb 18, 2020 at 14:51 Current Orders Orders Admission Order(Inpt,Obs,Sdc) (02/18/20 11:31) Vital Signs: Per Unit Policy ( 08,16,00 (02/18/20 11:31) Blayne Reno 09,21 (02/18/20 11:31) Sequential Compression Device Q4H (02/18/20 11:31) Assistant Golf Coach-Inpt Rehab Con (02/18/20 11:31) Rehab Nursing Orders-Ipoc (02/18/20 11:31) Physical Therapy Rehab Orders (02/18/20 11:31) Occupational Therapy Rehab Ord (02/18/20 11:31) Speech Therapy Rehab Orders (02/18/20:) Cbc With Automated Diff (02/19/20 06:00) Comprehensive Metabolic Panel (02/19/20 06:00) General/Regular (02/18/20 Lunch) Intake & Output 06,14, (02/18/20 11:31) Precautions (Aru) (02/18/20 11:31) Weekly Weight WEEK (02/18/20 11:31) Rehab-Intensity Of Therapy (02/18/20 11:31) Initiate Admission Nursing Pro .admission (02/18/20 11:31) Acetaminophen Tablet (Tylenol Tablet) (02/18/20 11:45) Alprazolam Tablet (Xanax Tablet) (02/18/20 11:45) Calcium Carbonate Chew Tablet (Antacid C (02/18/20 11:45) Diphenhydramine Tablet (Benadryl Tablet) (02/18/20 11:45) Docusate Sodium Capsule (Colace Capsule) (02/18/20 21:00) Docusate Sodium Capsule (Colace Capsule) (02/18/20 11:45) Bisacodyl Suppository (Dulcolax Supposit (02/18/20 11:45) Lactulose Oral Solution (Enulose Oral So (02/18/20 11:45) Na Phos/Na Biphos Enema (Fleet Enema Samir (02/18/20 11:45) Guaifenesin/Codeine Syrup (Robitussin Ac (02/18/20 11:45) Loperamide Tablet (Imodium Tablet) (02/18/20 11:45) Enoxaparin Injection (Lovenox Injection) (02/18/20 17:00) Melatonin Tablet (Melatonin Tablet) (02/18/20 11:45) Polyethylene Glycol Powder Pkt (Miralax (02/18/20 21:00) Ondansetron Oral Dissolve Tab (Zofran (02/18/20 11:45) Senna S Tablet (Senokot S Tablet) (02/18/20 21:00) Initiate Admission Nursing Pro .admission (02/18/20 11:31) Admission Arrival Bed Request (02/18/20 14:31) Aspirin Enteric Coated Tablet (Ecotrin T (02/19/20 09:00) Gabapentin Capsule/Tablet (Neurontin Cap (02/18/20 21:00) Metoclopramide Tablet (Reglan Tablet) (02/18/20 17:00) Metoprolol Succinate (Xl) Tab (Toprol Xl (02/19/20 09:00) Tamsulosin Capsule (Flomax Capsule) (02/19/20 09:00) Temazepam Capsule (Restoril Capsule) (02/18/20 15:15) Topiramate Tablet (Topamax Tablet) (02/18/20 21:00) (Nf) Cyclobenzaprine Hcl (02/18/20 15:15) Topiramate Tablet (Topamax Tablet) (02/18/20 21:00) Topiramate Tablet (Topamax Tablet) (02/25/20 21:00) Acetaminophen Tablet/Caplet (Tylenol T (02/18/20 15:30) Cyclobenzaprine Tablet (Flexeril Tablet) (02/18/20 15:30) Ambulate 08,12,20 (02/18/20 16:14) Sequential Compression Device Q4H (02/18/20 16:14) Dvt/Vte Risk - Notifiy Physici Q4H (02/18/20 16:14) Add Behavorial Health Instruct (02/18/20 16:14) Consult Cardiology (02/18/20 16:21) Patient Visit (02/18/20 ) Pt Eval Moderate Complexity (02/18/20 ) Functional Activities, Ea 15 (02/18/20 ) Telemetry (02/18/20 16:29) Telemetry Nursing Assessment ( (02/18/20 16:29) Behavorial Health Consult (02/18/20 16:35) Troponin I (02/19/20 05:00) Ekg Tracing (02/19/20 06:00) Telemetry (02/18/20 16:35) Patient Visit (02/19/20 ) Gait Training, Ea 15 Min (02/19/20 ) Hydrocodone/Apap 5/325 Tablet (Lortab 5 (02/19/20 12:45) Rehab Nursing Orders: Ongoing Assess. of Cognitive Status, Ongoing Assess. of Function Status, Bladder Management, Bladder Scan, Bladder Training, Bowel Management, Bowel Training, Disease Management & Educaiton, DVT Prophylaxis, Fall Prevention, Fluid/Electrolyte/Nutrition Mgmt, Infection Prevention, Medication Management & Education, Management of Risks & Complications, Management of Skin Intergrity, Nutrition Management, Pain Management, Patient/Family Support, Safety Management Intensity of Therapy to be met Patient to be seen: Min.3h per day/5 of 7d PT IPOC Problem List: Activity Tolerance, Functional Strength, Safety, Balance, Gait, Transfer Treatment Plan: Continue Plan of Care Bed Mobility, Education, Functional Activity Komal, Functional Strength, Group Therapy, Gait, Safety, Therapeutic Exercise, Transfers Treatment Duration: Mar 10, 2020 Frequency: At least 5 of 7 days/Wk (IRF) Estimated Hrs Per Day: 1.5 hours per day OT IPOC Problems: Decreased Activ Tolerance, Decreased UE Strength, Dependent Transfers, Impaired Coordination, Impaired Funct Balance, Impaired I ADL's, Impaired Self-Care Skills, Restricted Funct UE ROM, Visual-Perceptual Deficit OT Treatment, Training and Edu: Yes OT Problems Pt to benefit from skilled OT intervention for ADL training, transfers, strengthening, and safety education to increase independence and allow safe discharge. Plan of Care: ADL Retraining, Functional Mobility, Group Exercise/Act as Ind, UE Funct Exercise/Act, UE Neuromus Re-Ed/Coord Treatment Duration: Mar 10, 2020 Frequency: At least 5 of 7 days/Wk (IRF) Estimated Hrs Per Day: 1.[address] IPOC Speech Therapy Treatment Plan: Discontinue ST Treatment Duration: Feb 20, 2020 Frequency: Modified Program (IRF) Estimated Hrs Per Day: Other Assistant Golf Coach/Case Mgmt Assistant Golf Coach/Case Managemen: Discharge Planning Dietitian/Shaker Out Dietitian/Shaker Out to monitor nutritional status and make changes and/or recommendations as needed and work with speech pathology on dietary upgrades as the occur. Neuropsychology/Psychology ANXIETY, DEPRESSION, SELF LIMITING BEHAVIORS. Physician IPOC Medical Issues being managed closely and that require the 24 hour availability of a physician: Recent CVA acute on chronic with limitations of hemiparesis with recent report of chest pain and bradycardia prompting cardiology evaluation Brief Synthesis of Preadmission Screen, Post-Admission Evaluation, and Therapy Evaluations: PT OT will focus on increasing independence in ADL's and increasing stamina in order to return home Medical Prognosis: Good Anticipated Length of Stay: 7 days KASHMIR LENTZ DO Feb 20, 2020 11:02
--- NOTE | 2020-02-20 14:05 | NUR ---
Pt left and signed out AMA with pts daughter. Stated she was pleased with the care here but just wanted to go home. "I can lay in bed at home" and stated she will be fine. See Dr Su notes for further info
--- NOTE | 2020-02-20 14:43 | Discharge Summary ---
Diagnosis/Chief Complaint Date of Admission Feb 18, 2020 at 14:51 Date of Discharge Discharge Diagnosis Assessment: Left-sided weakness acute on chronic Complicated migraine Vision loss History of breast cancer status post bilateral mastectomies History of uterine cancer status post hysterectomy with treatment Obesity THALIA noncompliant with C Pap Hypertension Bradycardia? Hyperlipidemia History of DVTs Plan: Home meds [facility] medication recommendations Lovenox for DVT prophylaxis Telemetry per cardiology recommendations Pain meds she takes chronically at home Fall risk Patient left AMA (1) Left-sided weakness Status: Acute (2) Complicated migraine (3) H/O bilateral mastectomy (4) HX: breast cancer (5) Hypertension (6) History of CVA (cerebrovascular accident) (7) Chest pain in adult (8) Bradycardia (9) Obesity (10) Chronic pain (11) History of DVT (deep vein thrombosis) (12) THALIA (obstructive sleep apnea) (13) History of uterine cancer (14) Received tissue plasminogen activator (tPA) less than 24 hours prior to arrival (15) Vision loss, bilateral (16) Nocturnal hypoxemia (17) Back pain Discharge Summary Discharge Physical Examination Allergies: Coded Allergies: Penicillins (Unverified Allergy, Unknown, SOB, 02/18/20) adhesive (Verified Allergy, Unknown, 11/19/11) latex (Verified Allergy, Unknown, 11/19/11) Vitals & I&Os Vital Signs Date Time Temp Pulse Resp B/P (MAP) Pulse Ox O2 Delivery O2 Flow Rate FiO2 02/20/20 12:40 62 02/20/20 09:00 96 Room Air 02/20/20 06:30 36.9 18 106/57 (73) General Appearance: Alert, Oriented X3, Cooperative Respiratory: Clear to Auscultation Cardiovascular: Regular Rate Hospital Course Was the Problem List Reviewed?: Yes Patient had a brief IRF course before leaving AMA. Patient was admitted to IRF from [facility] after acute on chronic CVA dx with complicated migraine. Had chest pain on drive down and EMS called after 911 activated and brought her to [facility] troponin negative but patient noted bradycardia so Tely placed and Cardiology consulted and all stable during course. Patient insisted on leaving AMA from IRF. Labs (last 24 hrs) Laboratory Tests 02/19/20 06:05: White Blood Count 5.3, Red Blood Count 5.00, Hemoglobin 13.1, Hematocrit 41, Mean Corpuscular Volume 82, Mean Corpuscular Hemoglobin 26, Mean Corpuscular Hemoglobin Concent 32, Red Cell Distribution Width 14.5, Platelet Count 225, Mean Platelet Volume 9.5, Neutrophils (%) (Auto) 55, Lymphocytes (%) (Auto) 33, Monocytes (%) (Auto) 10, Eosinophils (%) (Auto) 2, Basophils (%) (Auto) 0, Neutrophils # (Auto) 2.9, Lymphocytes # (Auto) 1.8, Monocytes # (Auto) 0.5, Eosinophils # (Auto) 0.1, Basophils # (Auto) 0.0, Sodium Level 142, Potassium Level 3.7, Chloride Level 105, Carbon Dioxide Level 26, Anion Gap 11, Blood Urea Nitrogen 21H, Creatinine 0.84, Estimat Glomerular Filtration Rate > 60, BUN/Creatinine Ratio 25, Glucose Level 97, Calcium Level 9.1, Corrected Calcium 9.3, Total Bilirubin 0.3, Aspartate Amino Transf (AST/SGOT) 25, Alanine Aminotransferase (ALT/SGPT) 19, Alkaline Phosphatase 96, Troponin I < 0.028, Total Protein 7.1, Albumin 3.7 Pending Labs Laboratory Tests 02/19/20 06:05: White Blood Count 5.3, Red Blood Count 5.00, Hemoglobin 13.1, Hematocrit 41, Mean Corpuscular Volume 82, Mean Corpuscular Hemoglobin 26, Mean Corpuscular Hemoglobin Concent 32, Red Cell Distribution Width 14.5, Platelet Count 225, Mean Platelet Volume 9.5, Neutrophils (%) (Auto) 55, Lymphocytes (%) (Auto) 33, Monocytes (%) (Auto) 10, Eosinophils (%) (Auto) 2, Basophils (%) (Auto) 0, Ne utrophils # (Auto) 2.9, Lymphocytes # (Auto) 1.8, Monocytes # (Auto) 0.5, Eosinophils # (Auto) 0.1, Basophils # (Auto) 0.0, Sodium Level 142, Potassium Level 3.7, Chloride Level 105, Carbon Dioxide Level 26, Anion Gap 11, Blood Urea Nitrogen 21, Creatinine 0.84, Estimat Glomerular Filtration Rate > 60, BUN/Creatinine Ratio 25, Glucose Level 97, Calcium Level 9.1, Corrected Calcium 9.3, Total Bilirubin 0.3, Aspartate Amino Transf (AST/SGOT) 25, Alanine Aminotransferase (ALT/SGPT) 19, Alkaline Phosphatase 96, Troponin I < 0.028, Total Protein 7.1, Albumin 3.7 Discharge Home Medications: Active Scripts Active Reported Metoclopramide HCl 10 Mg Tablet 10 Mg PO QID Topamax (Topiramate) 25 Mg Tablet 25 Mg PO HS 7 Days TAKE 25MG FOR 7 DAYS THEN INCREASE TO 50MG Neurontin (Gabapentin) 300 Mg Capsule 300 Mg PO TID Flomax (Tamsulosin HCl) 0.4 Mg Cap 0.4 Mg PO DAILY Aspirin EC (Aspirin) 81 Mg Tablet.dr 81 Mg PO DAILY Temazepam 15 Mg Capsule 30 Mg PO HS PRN TAKES 2 (15MG) CAPS Metoprolol Succinate 25 Mg Tab.er.24h 25 Mg PO DAILY Cyclobenzaprine HCl 5 Mg Tablet 5 Mg PO TID PRN Instructions to patient/family Please see electronic discharge instructions given to patient. Diagnosis/Problems Diagnosis/Problems (1) Left-sided weakness Status: Acute (2) Complicated migraine (3) H/O bilateral mastectomy (4) HX: breast cancer (5) Hypertension (6) History of CVA (cerebrovascular accident) (7) Chest pain in adult (8) Bradycardia (9) Obesity (10) Chronic pain (11) History of DVT (deep vein thrombosis) (12) THALIA (obstructive sleep apnea) (13) History of uterine cancer (14) Received tissue plasminogen activator (tPA) less than 24 hours prior to arrival (15) Vision loss, bilateral (16) Nocturnal hypoxemia (17) Back pain Clinical Quality Measures DVT/VTE Risk/Contraindication: Risk Factor Score Per Nursin RFS Level Per Nursing on Admit: 4+=Very High KASHMIR LENTZ DO Feb 20, 2020 14:43
--- NOTE | 2020-02-21 09:56 | Therapy Team Discharge Summary ---
Therapy Discharge Summary Discharge Recommendations Date of Discharge Feb 20, 2020 at 14:05 Physical Therapy Patient came to rehab with CVA. Upon evaluation patient performed bed mobility with min assist, supine <-> sit with min assist, sit to stand min assist, transfers min assist, car transfer min assist, ambulated 6' in the parallel bars with min assist, and could propel a manual WC 120' with SBA. Patient came in on a Friday and discharged herself from this hospital over the weekend AMA. Last measurements of functional mobility were not able to be obtained but on Friday she did ambulate 20' with a rolling walker with CGA. It is unknown what her other discharge quality codes are. Occupational Therapy Decreased Activ Tolerance, Decreased UE Strength, Dependent Transfers, Impaired Coordination, Impaired Funct Balance, Impaired I ADL's, Impaired Self-Care Skills, Restricted Funct UE ROM, Visual-Perceptual Deficit PT Health Specialist Goals Intermediate Goals PT Intermediate Goals Time Frame: Mar 10, 2020 Roll Left to Right (QC): 6 Sit to Lying (QC): 6 Lying-Sitting on Side/Bed(QC): 6 Sit to Stand (QC): 6 Chair/Tkr-kv-Xmfjo Xfer(QC): 6 Car Transfer (QC): 6 Does the Patient Walk: Yes Walk 10 feet (QC): 5 Walk 10ft-Uneven Surface(QC): 5 Walk 50ft with 2 Turns (QC): 5 Walk 150 ft (QC): 5 Wheel 50 feet with 2 turns (QC: 6 1 Step (curb) (QC): 4 4 Steps (QC): 4 12 Steps (QC): 88 Picking up an Object (QC): 88 OT Intermediate Goals Intermediate Goals Time Frame: Mar 10, 2020 Eating (FIM): 6 Eating (QC): 6 Oral Hygiene (QC): 6 Shower/Bathe Self (QC): 5 Upper Body Dressing (QC): 6 Lower Body Dressing (QC): 6 On/Off Footwear (QC): 6 Toileting(FIM): 6 Toileting Hygiene (QC): 6 Toilet/Commode Transfer (QC): 6 Additional Goals: 1-Demonstrate ADL Tasks, 2-Verbalize Understanding, 3-Impr oveStrength/Komal 1=Demonstrate adherence to instructed precautions during ADL tasks. 2=Patient will verbalize/demonstrate understanding of assistive devices/modifications for ADL. 3=Patient will improve strength/tolerance for activity to enable patient to perform ADL's. KILEY OSORIO PT Feb 21, 2020 09:56
--- NOTE | 2020-02-21 11:00 | Therapy Team Discharge Summary ---
Therapy Discharge Summary Discharge Recommendations Date of Discharge Feb 20, 2020 at 14:05 Therapy D/C Recommendations: Home w/ Family Support Occupational Therapy Pt. transferred to this acute rehab facility to gain strength and independence with daily skills. Pt. discharged AMA, (against medical advice), on February 19, 2020. No goals met at that time as pt. had not had time to properly address them. Decreased Activ Tolerance, Decreased UE Strength, Dependent Transfers, Impaired Coordination, Impaired Funct Balance, Impaired I ADL's, Impaired Self-Care Skills, Restricted Funct UE ROM, Visual-Perceptual Deficit PT Triage Registered Nurse Goals Triage Registered Nurse Goals PT Assisted Goals Time Frame: Mar 10, 2020 Roll Left to Right (QC): 6 Sit to Lying (QC): 6 Lying-Sitting on Side/Bed(QC): 6 Sit to Stand (QC): 6 Chair/Rmj-ka-Iipzq Xfer(QC): 6 Car Transfer (QC): 6 Does the Patient Walk: Yes Walk 10 feet (QC): 5 Walk 10ft-Uneven Surface(QC): 5 Walk 50ft with 2 Turns (QC): 5 Walk 150 ft (QC): 5 Wheel 50 feet with 2 turns (QC: 6 1 Step (curb) (QC): 4 4 Steps (QC): 4 12 Steps (QC): 88 Picking up an Object (QC): 88 OT Triage Registered Nurse Goals Assisted Goals Time Frame: Mar 10, 2020 Eating (FIM): 6 (not met) Eating (QC): 6 (not met) Oral Hygiene (QC): 6 (not met) Shower/Bathe Self (QC): 5 (not met) Upper Body Dressing (QC): 6 (not met) Lower Body Dressing (QC): 6 (not met) On/Off Footwear (QC): 6 (not met) Toileting(FIM): 6 (not met) Toileting Hygiene (QC): 6 (not met) Toilet/Commode Transfer (QC): 6 (not met) Additional Goals: 1-Demonstrate ADL Tasks, 2-Verbalize Understanding, 3- ImproveStrength/Komal 1=Demonstrate adherence to instructed precautions during ADL tasks. 2=Patient will verbalize/demonstrate understanding of assistive devices/modifications for ADL. 3=Patient will improve strength/tolerance for activity to enable patient to perform ADL's. SIN LOVING OT Feb 21, 2020 11:00
[2020-02-25] MEDS ORDERED: toPIRamate 25 MG (TOPAMAX) TAB PO SCH (21:00)
== END 2020-02-20 14:05 | disposition left against medical advice (07) | DRG 57 ==
PROVIDERS: ADMIT Internal Medicine; ATTEND Internal Medicine
DX: I69.354 Hemiplegia and hemiparesis following cerebral infarction affecting left non-dominant side (principal); I45.2 Bifascicular block; R07.9 Chest pain, unspecified; R00.1 Bradycardia, unspecified; G43.109 Migraine with aura, not intractable, without status migrainosus; F41.9 Anxiety disorder, unspecified; F32.9 Major depressive disorder, single episode, unspecified; I10 Essential (primary) hypertension; G47.33 Obstructive sleep apnea (adult) (pediatric); G62.9 Polyneuropathy, unspecified; K21.9 Gastro-esophageal reflux disease without esophagitis; E78.5 Hyperlipidemia, unspecified; E66.9 Obesity, unspecified; Z68.38 Body mass index [BMI] 38.0-38.9, adult; Z86.718 Personal history of other venous thrombosis and embolism; Z85.3 Personal history of malignant neoplasm of breast; Z85.42 Personal history of malignant neoplasm of other parts of uterus
CPT/HCPCS: 36415; 80053; 84484; 85025; 85027; 93005

== ENCOUNTER → 2021-03-22 | Outpatient (CLI) | payer OTHER, MEDICAID ==
[~2021-03-22] MED LIST changes: +ASPI-1238 PO; +CYCL5TAB PO; +GABA300C PO; +MTC10T PO; +MTP25TSR PO; +TEMA15CA PO; +TMSL.4C PO; +TPR25T PO
[2021-03-22 10:40] LABS: CREATININE SERUM 0.73 MG/DL (0.60-1.30); POTASSIUM 4.1 MMOL/L (3.6-5.0)
[2021-03-22 10:41] LABS: ALBUMIN 3.9 GM/DL (3.2-4.5); BILIRUBIN,TOTAL 0.3 MG/DL (0.1-1.0); CALCIUM 9.2 MG/DL (8.5-10.1); TOTAL PROTEIN 7.6 GM/DL (6.4-8.2)
[2021-03-22 10:44] LABS: HEMATOCRIT 45 % (35-52); HEMOGLOBIN 13.5 G/DL (11.5-16.0); MEAN CORPUSCULAR HEMOGLOBIN 26 PG (25-34); MEAN CORPUSCULAR HGB CONC 30 G/DL (32-36); MEAN CORPUSCULAR VOLUME 88 FL (80-99); WHITE BLOOD COUNT 4.3 10^3/uL (4.3-11.0)
[2021-03-22 10:47] LABS: BASOPHILS % (AUTO) 0 % (0-10); EOSINOPHILS # (AUTO) 0.1 10^3/uL (0.0-0.3); EOSINOPHILS % (AUTO) 3 % (0-10); LYMPHOCYTES # (AUTO) 1.6 X 10^3 (1.0-4.0); LYMPHOCYTES % (AUTO) 36 % (12-44); MEAN PLATELET VOLUME 9.7 FL (7.4-10.4); MONOCYTES # (AUTO) 0.4 X 10^3 (0.0-1.0); MONOCYTES % (AUTO) 10 % (0-12); NEUTROPHILS # (AUTO) 2.2 X 10^3 (1.8-7.8); NEUTROPHILS % (AUTO) 51 % (42-75); PLATELET COUNT 199 10^3/uL (130-400)
== END ==
LOC: LAB FS 09:52
PROVIDERS: ATTEND Nurse Practitioner Family
DX: R30.0 Dysuria (principal); R10.32 Left lower quadrant pain; Z86.16 Personal history of COVID-19
CPT/HCPCS: 36415; 80053; 85025

== ENCOUNTER → 2021-03-22 | Outpatient (CLI) | payer OTHER, MEDICAID ==
--- NOTE | 2021-03-22 13:17 | Diagnostic Imaging Report ---
PROCEDURE: CT abdomen and pelvis without contrast. TECHNIQUE: Multiple contiguous axial images were obtained through the abdomen and pelvis without the use of intravenous contrast. Auto Exposure Controls were utilized during the CT exam to meet ALARA standards for radiation dose reduction. INDICATION: Severe left-sided abdominal pain radiating to the back. Correlation is made with prior CT from 12/03/2019. The lung bases are clear. The liver is unremarkable. The gallbladder is surgically absent. There is no biliary ductal dilatation. The pancreas and spleen are unremarkable. There are postop changes to the stomach. No adrenal mass is identified. There are several nonobstructing calculi within the right kidney, largest in the lower pole measuring approximately 4 mm in size. The right ureter is unremarkable. The left kidney is without calculi. The left ureter is unremarkable. No hydronephrosis is seen. No bladder calculi are detected. Aorta is nonaneurysmal. The small and large bowel loops appear to be normal caliber. There is no obstruction. There is no free fluid or fluid collection. Uterus appears to be surgically absent. Bony structures are unremarkable. IMPRESSION: 1. Nonobstructing right-sided nephrolithiasis. No ureteral calculi or hydronephrosis is detected. 2. No acute feature in the abdomen or pelvis is identified. Dictated by: Dictated on workstation # [id number]
== END ==
LOC: RAD FS 11:44
PROVIDERS: ATTEND Nurse Practitioner Family
DX: N20.0 Calculus of kidney (principal); Z86.16 Personal history of COVID-19
CPT/HCPCS: 74176

== ENCOUNTER → 2021-08-14 | Outpatient (CLI) | payer OTHER, MEDICAID ==
--- NOTE | 2021-08-14 15:52 | Diagnostic Imaging Report ---
INDICATION: Fall with right hip pain. TECHNIQUE: AP and oblique views of the right hip were obtained. FINDINGS: No fracture or acute bony abnormality is seen. The joint spaces are unremarkable. IMPRESSION: Negative right hip. Dictated by: Dictated on workstation # [id number]
== END ==
LOC: RAD FS 14:30
PROVIDERS: ATTEND Family Medicine
DX: M25.551 Pain in right hip (principal); W19.XXXA Unspecified fall, initial encounter
CPT/HCPCS: 73502

== ENCOUNTER 2022-05-13 13:57 | Emergency (ER) | payer OTHER, MEDICAID ==
[~2022-05-13] VITALS: Ht 180 cm; Wt 105.0 kg
[2022-05-13] MEDS ORDERED: NS IV 1000 ML 1,000 ML IV STA (14:15)
[2022-05-13] MEDS ORDERED: PANTOPRAZOLE 40 MG (PROTONIX) VIAL IV STA (14:15)
[2022-05-13] MEDS ORDERED: KETOROLAC 30 MG/ML VIAL IVP STA (14:15)
[2022-05-13] MEDS ORDERED: ONDANSETRON 4 MG/2 ML (SDV) Z0FRAN IVP STA (14:15)
[2022-05-13 14:30] LABS: BILIRUBIN,URINE NEGATIVE (NEGATIVE); CLARITY,URINE CLEAR; COLOR,URINE YELLOW; GLUCOSE, URINE (UA) NEGATIVE (NEGATIVE); KETONES,URINE NEGATIVE (NEGATIVE); LEUKOCYTE ESTERASE ,URINE NEGATIVE (NEGATIVE); NITRITE,URINE NEGATIVE (NEGATIVE); PH,URINE 5.5 (5-9); PROTEIN,URINE NEGATIVE (NEGATIVE)
[2022-05-13] MEDS ORDERED: NS 100 ML (IVPB) BAG IV ONE (14:30)
[2022-05-13] MEDS ORDERED: IOHEXOL 350 MG/ML 100 ML (OMNIPAQUE 350) VIAL IV ONE (14:30)
[2022-05-13] MEDS ORDERED: HOLD METFORMIN - RECEIVED CONTRAST 20 ML VIAL IV SCH (14:30)
--- NOTE | 2022-05-13 14:30 | ED Abdominal Pain ---
General Stated Complaint: ABD PAIN Source of Information: Patient History of Present Illness Date Seen by Provider: May 13, 2022 Time Seen by Provider: 14:00 Initial Comments 51-year-old female presenting with complaints of left sided abdominal pain. T his has been going on for the last several weeks. She was feeling worse today and states that she has had fevers up to 104 T-max at home. She has had nausea but no vomiting. She has had stools that vary from being loose to constipated. She denies seeing any bright red blood in her stool. She has had not had pain with urination. She had seen urgent care about the pain and they felt that she had a knot on her abdomen. Ultrasound was done and she is unsure of result of that but they are referring her to a surgeon in [place] at [place]. Since she felt the pain was worse today and was feeling bad overall she had gone to see Dr. Mario in clinic and he told her she might have diverticulitis and might need admit to the hospital so he sent her to the stand alone ED here in [place]. Timing/Duration: Other (waxing and waning over the last several weeks) Severity/Quality: Severe, Sharp, Stabbing Location: LUQ, LLQ Radiation: Back Activities at Onset: None Modifying Factors: Worsens With Movement, Worsens With Palpation Associated Symptoms: No Chest Pain, No Diaphoresis; Fever/Chills, Fatigue; No Headache; Heartburn, Nausea/Vomiting; No Rash, No Shortness of Air, No Swelling/Mass in Abdomen, No Syncope, No Weakness Allergies and Home Medications Allergies Coded Allergies: Penicillins (Unverified Allergy, Unknown, SOB, 02/18/20) adhesive (Verified Allergy, Unknown, 11/19/11) latex (Verified Allergy, Unknown, 11/19/11) Patient Home Medication List Home Medication List Reviewed: Yes Aspirin (Aspirin EC) 81 Mg Tablet., 81 MG PO DAILY, (Reported) Entered as Reported by: PAPA AGUAYO on 02/18/20 1119 Cyclobenzaprine HCl (Cyclobenzaprine HCl) 5 Mg Tablet, 5 MG PO TID PRN for MUSCLE SPASMS, (Reported) Entered as Reported by: PAPA AGUAYO on 02/18/20 1119 Gabapentin (Neurontin) 300 Mg Capsule, 300 MG PO TID, (Reported) Entered as Reported by: PAPA AGUAYO on 02/18/20 1119 Metoclopramide HCl (Metoclopramide HCl) 10 Mg Tablet, 10 MG PO QID, (Reported) Entered as Reported by: PAPA AGUAYO on 02/18/20 1120 Metoprolol Succinate (Metoprolol Succinate) 25 Mg Tab.er.24h, 25 MG PO DAILY, (Reported) Entered as Reported by: PAPA AGUAYO on 02/18/20 111 Tamsulosin HCl (Flomax) 0.4 Mg Cap, 0.4 MG PO DAILY, (Reported) Entered as Reported by: PAPA AGUAYO on 02/18/20 1119 Temazepam (Temazepam) 15 Mg Capsule, 30 MG PO HS PRN for SLEEP, (Reported) Entered as Reported by: PAPA AGUAYO on 02/18/20 111 Topiramate (Topamax) 25 Mg Tablet, 25 MG PO HS, (Reported) Entered as Reported by: PAPA AGUAYO on 02/18/20 1119 Review of Systems Review of Systems Constitutional: see HPI EENTM: No Symptoms Reported Respiratory: No Symptoms Reported Cardiovascular: No Symptoms Reported Gastrointestinal: See HPI Genitourinary: Denies Burning; Flank Pain Musculoskeletal: joint pain (chronic joint pain that she takes Hydrocodone to help manage) Skin: No rash Psychiatric/Neurological: Anxiety Endocrine: No Symptoms Reported Hematologic/Lymphatic: No Symptoms Reported Past Sugylfi-Vmuzjd-Alldmg Hx Seasonal Allergies Seasonal Allergies: No Past Medical History Surgery/Hospitalization HX: Bilateral Mastectomy Surgeries: Yes (DOUBLE MASTECTOMY IN 2010, GROSHONG PLACEMENT X2, GASTRIC S LEEVE. ) Breast Respiratory: No Currently Using CPAP: No Currently Using BIPAP: No Cardiac: Yes Deep Vein Thrombosis, High Cholesterol, Hypertension Neurological: Yes (CVA IN 2013 AND 2017. ) Stroke Reproductive Disorders: Yes Genitourinary: No Bladder Infection Gastrointestinal: Yes Chronic Constipation Musculoskeletal: Yes (OSTEOMYLITIS RIGHT FOOT) Arthritis, Chronic Back Pain Endocrine: No Cancer: Yes (UTERINE AND BREAST CANCER. ) Breast, Uterine Did You Recieve Any Treatments: Yes What Type of Treatment Did You: Chemotherapy, Radiation, Surgical Intervention Psychosocial: Yes Anxiety Integumentary: No Blood Disorders: No Physical Exam Vital Signs Vital Signs - First Documented 05/13/22 15:12 Temp 36.2 Pulse 52 Resp 18 B/P (MAP) 150/84 (106) Pulse Ox 100 O2 Delivery Room Air Capillary Refill : Height/Weight/BMI Height: '" Weight: lbs. oz. 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 II-XII nml as tested, alert, oriented x 3 Skin: normal color, warm/dry Progress/Results/Core Measures Results/Orders Lab Results Laboratory Tests Test 05/13/22 14:15 Range/Units White Blood Count 4.5 4.3-11.0 10^3/uL Red Blood Count 4.50 3.80-5.11 10^6/uL Hemoglobin 12.2 11.5-16.0 g/dL Hematocrit 38 35-52 % Mean Corpuscular Volume 85 80-99 fL Mean Corpuscular Hemoglobin 27 25-34 pg Mean Corpuscular Hemoglobin Concent 32 32-36 g/dL Red Cell Distribution Width 13.9 10.0-14.5 % Platelet Count 172 130-400 10^3/uL Mean Platelet Volume 10.0 9.0-12.2 fL Immature Granulocyte % (Auto) 0 % Neutrophils (%) (Auto) 54 42-75 % Lymphocytes (%) (Auto) 34 12-44 % Monocytes (%) (Auto) 10 0-12 % Eosinophils (%) (Auto) 2 0-10 % Basophils (%) (Auto) 0 0-10 % Neutrophils # (Auto) 2.5 1.8-7.8 10^3/uL Lymphocytes # (Auto) 1.5 1.0-4.0 10^3/uL Monocytes # (Auto) 0.4 0.0-1.0 10^3/uL Eosinophils # (Auto) 0.1 0.0-0.3 10^3/uL Basophils # (Auto) 0.0 0.0-0.1 10^3/uL Immature Granulocyte # (Auto) 0.0 0.0-0.1 10^3/uL Urine Color YELLOW Urine Clarity CLEAR Urine pH 5.5 5-9 Urine Specific [place] 1.025 H 1.016-1.022 Urine Protein NEGATIVE NEGATIVE Urine Glucose (UA) NEGATIVE NEGATIVE Urine Ketones NEGATIVE NEGATIVE Urine Nitrite NEGATIVE NEGATIVE Urine Bilirubin NEGATIVE NEGATIVE Urine Urobilinogen 0.2 < = 1.0 MG/DL Urine Leukocyte Esterase NEGATIVE NEGATIVE Urine RBC (Auto) NEGATIVE NEGATIVE Urine RBC RARE /HPF Urine WBC RARE /HPF Urine Squamous Epithelial Cells 2-5 /HPF Urine Crystals PRESENT H /LPF Urine Calcium Oxalate Crystals MODERATE H /LPF Urine Bacteria FEW H /HPF Urine Casts NONE /LPF Urine Mucus MODERATE H /LPF Urine Culture Indicated NO Sodium Level 140 135-145 MMOL/L Potassium Level 4.1 3.6-5.0 MMOL/L Chloride Level 104 98-107 MMOL/L Carbon Dioxide Level 26 21-32 MMOL/L Anion Gap 10 5-14 MMOL/L Blood Urea Nitrogen 16 7-18 MG/DL Creatinine 0.73 0.60-1.30 MG/DL Estimat Glomerular Filtration Rate 101 BUN/Creatinine Ratio 22 Glucose Level 88 70-105 MG/DL Calcium Level 9.0 8.5-10.1 MG/DL Corrected Calcium 9.2 8.5-10.1 MG/DL Total Bilirubin 0.3 0.1-1.0 MG/DL Aspartate Amino Transf (AST/SGOT) 21 5-34 U/L Alanine Aminotransferase (ALT/SGPT) 12 0-55 U/L Alkaline Phosphatase 158 H 40-136 U/L Total Protein 7.0 6.4-8.2 GM/DL Albumin 3.8 3.2-4.5 GM/DL Lipase 31 8-78 U/L My Orders Orders - RAUL PEREIRA MD Comprehensive Metabolic Panel (05/13/22 14:01) Lipase (05/13/22 14:01) Ua Culture If Indicated (05/13/22 14:01) Ed Iv/Invasive Line Start (05/13/22 14:01) Cbc With Automated Diff (05/13/22 14:01) Urine Bedside (05/13/22 14:01) Ns Iv 1000 Ml (Sodium Chloride 0.9%) (05/13/22 14:15) Ondansetron Injection (Zofran Injectio (05/13/22 14:15) Pantoprazole Injection (Protonix Injecti (05/13/22 14:15) Ketorolac Injection (Toradol Injection) (05/13/22 14:15) Ct Abdomen/Pelvis Wo (05/13/22 14:15) Fentanyl Inj (Sublimaze Injection) (05/13/22 15:55) Antacid Suspension (Mylanta Suspension (05/13/22 16:00) Lidocaine 2% Viscous 15 Ml (Xylocaine Vi (05/13/22 16:00) Heparin (Central Iv Flush) (Heparin (Charanjit (05/13/22 16:53) Medications Given in ED Current Medications Medications Dose Ordered Sig/Megan Route Start Time Stop Time Status Last Admin Dose Admin Al Hydrox/Mg Hydrox/Simethicone 30 ml ONCE ONCE PO 05/13/22 16:00 05/13/22 16:01 DC 05/13/22 16:10 30 ML Lidocaine HCl 15 ml ONCE ONCE PO 05/13/22 16:00 05/13/22 16:01 DC 05/13/22 16:10 15 ML Vital Signs/I&O 05/13/22 15:12 Temp 36.2 Pulse 52 Resp 18 B/P (MAP) 150/84 (106) Pulse Ox 100 O2 Delivery Room Air Progress Progress Note #1: Progress Note Check basic labs and urine. Order CT scan of the abdomen and pelvis with IV contrast to evaluate for possible diverticulitis versus colitis versus gastritis versus bowel obstruction versus pyelonephritis versus abdominal mass. Order normal saline 1 L IV fluid bolus for hydration, Protonix 40 mg IV for gastritis, and Zofran 4 mg IV for nausea and vomiting, Toradol 30 mg IV for pain. Progress Note #2: Progress Note Labs are all stable without elevation of her white blood cell count or signs of acute electrolyte imbalance. Lipase and liver enzymes are normal. Urinalysis does not show signs of infection. CT scan shows chronic postsurgical changes and bilateral kidney stones but no intraureteral stones or obstruction. No signs of diverticulitis or appendicitis. Patient was still complaining of pain so we will give an additional dose of pain medicine and see if that helps. However currently there is nothing surgical showing on her tests or a reason for her to be having fevers at home. Progress Note #3: Progress Note On recheck of the patient she was reassured that the test results have not shown anything surgical or signs of a big infection. Her pain was improved with treatment but not completely resolved. She wants to try resting at home and continuing her medicines that she has for acid and gastritis. Counseled on follow-up and return precautions. Advised if her symptoms again worsen or has new findings then she should be reevaluated. Diagnostic Imaging Diagonstic Imaging: CT Plain Films/CT/US/NM/MRI: abdomen, pelvis Comments NAME: [facility]RISTOP[facility]AN [facility] REC#: [id number] PT STATUS: REG ER : 1970 PHYSICIAN: RAUL PEREIRA MD ADMIT DATE: 05/13/22/ER FS Draft Date of Exam:05/13/22 CT ABDOMEN/PELVIS WO PROCEDURE: CT abdomen and pelvis without contrast. TECHNIQUE: Multiple contiguous axial images were obtained through the abdomen and pelvis without the use of intravenous contrast. Auto Exposure Controls were utilized during the CT exam to meet ALARA standards for radiation dose reduction. INDICATION: Left upper quadrant and flank pain, symptoms progressive in severity over the past 2-3 weeks. COMPARISON: Exam is compared with abdominopelvic CT 03/22/2021. FINDINGS: There are bilateral intrarenal calculi, but no hydroureteronephrosis. There is extra-ureteral gonadal vein and pelvic phleboliths, but no appreciable intra-ureteral calculus. No perinephric or periureteric stranding or edema. There is no appendicitis or diverticulitis. There is no small or large bowel obstruction. Postsurgical changes to the stomach are present. Gallbladder is surgically absent. Liver, bile ducts, spleen, adrenals, and pancreas are all nonacute. The aorta is nonaneurysmal. There is no ileus or bowel obstruction. There is a chronic noninflamed umbilical hernia. There is no adnexal lesion. The uterus is absent. IMPRESSION: 1. Nonobstructing nephrolithiasis, but no hydronephrosis or opaque ureteral/bladder stone. 2. No obstructive features, inflammatory processes, or acute appearing abnormalities. Dictated on workstation # [id number] Dict: 05/13/22 1515 Trans: 05/13/22 1521 [id number] Interpreted by: HENRI DUFFY Electronically signed by: Reviewed: Reviewed by Me Departure Impression Primary Impression: Left upper quadrant abdominal pain Additional Impression: Left flank pain Disposition: 01 HOME, SELF-CARE Condition: Stable Departure-Patient Inst. Decision time for Depature: 16:31 Referrals: AASHISH MARIO MD (PCP) Primary Care Physician Patient Instructions: Abdominal Pain, Adult ED, Flank Pain ED, Full Liquid Diet Add. Discharge Instructions: Stay well hydrated and drink plenty of fluids. Follow a liquid diet for next 24 to 48 hours. Continue with acid reducing medicines. Check with clinic or be seen in ER again if having worsening symptoms. RAUL PEREIRA MD May 13, 2022 14:30
[2022-05-13 14:35] LABS: BASOPHILS % (AUTO) 0 % (0-10); EOSINOPHILS # (AUTO) 0.1 10^3/uL (0.0-0.3); EOSINOPHILS % (AUTO) 2 % (0-10); HEMATOCRIT 38 % (35-52); HEMOGLOBIN 12.2 g/dL (11.5-16.0); LYMPHOCYTES # (AUTO) 1.5 10^3/uL (1.0-4.0); LYMPHOCYTES % (AUTO) 34 % (12-44); MEAN CORPUSCULAR HEMOGLOBIN 27 pg (25-34); MEAN CORPUSCULAR HGB CONC 32 g/dL (32-36); MEAN CORPUSCULAR VOLUME 85 fL (80-99); MONOCYTES # (AUTO) 0.4 10^3/uL (0.0-1.0); MONOCYTES % (AUTO) 10 % (0-12); NEUTROPHILS # (AUTO) 2.5 10^3/uL (1.8-7.8); NEUTROPHILS % (AUTO) 54 % (42-75); PLATELET COUNT 172 10^3/uL (130-400); WHITE BLOOD COUNT 4.5 10^3/uL (4.3-11.0)
[2022-05-13 14:49] LABS: BACTERIA,URINE FEW /HPF; CALCIUM OXALATE CRYSTALS,UR MODERATE /LPF; RBC,URINE RARE /HPF; WBC,URINE RARE /HPF
[2022-05-13 14:51] LABS: BILIRUBIN,TOTAL 0.3 MG/DL (0.1-1.0); CREATININE SERUM 0.73 MG/DL (0.60-1.30); POTASSIUM 4.1 MMOL/L (3.6-5.0)
[2022-05-13 14:52] LABS: ALBUMIN 3.8 GM/DL (3.2-4.5)
[2022-05-13 15:12] VITALS: BP 150/84
--- NOTE | 2022-05-13 15:22 | Diagnostic Imaging Report ---
PROCEDURE: CT abdomen and pelvis without contrast. TECHNIQUE: Multiple contiguous axial images were obtained through the abdomen and pelvis without the use of intravenous contrast. Auto Exposure Controls were utilized during the CT exam to meet ALARA standards for radiation dose reduction. INDICATION: Left upper quadrant and flank pain, symptoms progressive in severity over the past 2-3 weeks. COMPARISON: Exam is compared with abdominopelvic CT 03/22/2021. FINDINGS: There are bilateral intrarenal calculi, but no hydroureteronephrosis. There is extra-ureteral gonadal vein and pelvic phleboliths, but no appreciable intra-ureteral calculus. No perinephric or periureteric stranding or edema. There is no appendicitis or diverticulitis. There is no small or large bowel obstruction. Postsurgical changes to the stomach are present. Gallbladder is surgically absent. Liver, bile ducts, spleen, adrenals, and pancreas are all nonacute. The aorta is nonaneurysmal. There is no ileus or bowel obstruction. There is a chronic noninflamed umbilical hernia. There is no adnexal lesion. The uterus is absent. IMPRESSION: 1. Nonobstructing nephrolithiasis, but no hydronephrosis or opaque ureteral/bladder stone. 2. No obstructive features, inflammatory processes, or acute appearing abnormalities. Dictated by: Dictated on workstation # [id number]
[2022-05-13] MEDS ORDERED: fentaNYL INJ 100 MCG/2 ML AMP IVP STA (15:55)
[2022-05-13] MEDS ORDERED: ANTACID SUSP 30 ML UDC (MYLANTA) PO ONE (16:00)
[2022-05-13] MEDS ORDERED: LIDOCAINE 2% VISCOUS 15 ML UDC PO ONE (16:00)
[2022-05-13] MEDS ORDERED: HEParin (CENTRAL IV FLUSH) 500 UNIT/5 ML SYR IV STA (16:53)
== END 2022-05-13 16:50 | disposition home or self-care (01) ==
LOC: EDUNIT# 13:57 → ER FS 13:58
DX: R10.12 Left upper quadrant pain (principal); R11.0 Nausea; Z98.84 Bariatric surgery status; Z91.040 Latex allergy status; Z28.310 Unvaccinated for COVID-19
CPT/HCPCS: 36415; 74176; 80053; 81000; 83690; 85025; 96361; 96374; 96375